=== PATIENT | female | born 1970 | race Two or more races ===

== ENCOUNTER 2017-01-31 01:55 | Emergency (ER) | payer OTHER ==
[2017-01-31 01:55] VITALS: BMI 31.8
[2017-01-31 02:19] VITALS: RESP 20; O2SAT 100
[2017-01-31] MEDS ORDERED: Sodium Chloride 0.9% 1,000 ML IV STA (02:56)
--- NOTE | 2017-01-31 02:59 | C.PDOC ---
History Of Present Illness 46 y/o F c PMHx HTN, SVT, on metoprolol, HLD, DM p/w R arm paresthesias and palpitations x 2 days. Tonight, she took her fingerstick at home and found it to be over 500 and came to ED. She reports increased urination and increased thirst. She denies chest pain, vomiting, dyspnea, abdominal pain. Time Seen by Provider: 01/31/17 02:19 Chief Complaint (Nursing): High Blood Sugar History Per: Patient History/Exam Limitations: no limitations Onset/Duration Of Symptoms: Days (2) Current Symptoms Are (Timing): Still Present Severity: Mild Associated Infectious Symptoms: Urinary Frequency, Other (Increased thirst) Recent travel outside of the [place]: No Additional History Per: Patient Past Medical History Reviewed: Historical Data, Nursing Documentation, Vital Signs Vital Signs: Last Vital Signs Temp Pulse 87 01/31/17 03:29 Resp 20 01/31/17 03:29 BP 169/92 H 01/31/17 03:29 Pulse Ox 100 01/31/17 03:29 - Medical History PMH: Anxiety, Diabetes, HTN, Hypercholesterolemia, Malignancy (Ovarian CA) Denies: Chronic Kidney Disease Surgical History: Appendectomy Family History: States: Unknown Family Hx - Social History Hx Tobacco Use: No Hx Alcohol Use: No Hx Substance Use: No - Immunization History Hx Tetanus Toxoid Vaccination: No Hx Influenza Vaccination: No Hx Pneumococcal Vaccination: No Review Of Systems Except As Marked, All Systems Reviewed And Found Negative. Constitutional: Positive for: Other (Increased thirst). Negative for: Fever, Sweats Cardiovascular: Positive for: Palpitations. Negative for: Chest Pain, Light Headedness Respiratory: Negative for: Shortness of Breath Gastrointestinal: Negative for: Vomiting, Abdominal Pain Genitourinary: Positive for: Frequency (Increased urination) Musculoskeletal: Positive for: Arm Pain (Right arm paresthesias) Physical Exam - Physical Exam Additional Physical Exam Comments: Constitutional: No acute distress. Head: Normocephalic. Atraumatic. Eyes: PERRL. ENT: Moist mucous membranes. Neck: Supple. Cardiovascular: Tachycardic. Radial pulse 2+ bilaterally. Chest: No tenderness. Respiratory: Clear to auscultation bilaterally. GI: Soft. Nontender. Nondistended. Back: No CVA tenderness. Musculoskeletal: No tenderness or swelling of extremities. Skin: No rash. Neurologic: Alert, no focal deficit. ED Course And Treatment - Laboratory Results Result Diagrams: 01/31/17 03:01 01/31/17 03:01 ECG: Interpreted By Me, Viewed By Me ECG Rhythm: Sinus Rhythm (111) ECG Interpretation: Normal Interpretation Of ECG: No ST/T wave changes. Rate From EC O2 Sat by Pulse Oximetry: 100 (RA) Pulse Ox Interpretation: Normal Medical Decision Making Medical Decision Making: Impression: R arm paresthesias and palpitations x 2 days Plans: * Blood work up * CXR * IV fluids * UA EKG Sinus rhythm, 104 bpm, no ST/T wave changes. CXR no infiltrate or consolidation. Hyperglycemia on labs without acidosis or ketosis. Blood pressure improved and glucose 313 on repeat fingerstick. Will discharge home, f/u PMD this week, return to ED for worsening dyspnea, vomiting, pain, fever, or any other problem. Disposition - Disposition Disposition: HOME/ ROUTINE Disposition Time: 04:09 Condition: STABLE Instructions: Diabetic Hyperglycemia (ED) Forms: [employer] (Hong Konger) - Clinical Impression Clinical Impression: Hyperglycemia - Scribe Statement The provider has reviewed the documentation as recorded by the Scribe Ragini chase All medical record entries made by the Scribe were at my direction and personally dictated by me. I have reviewed the chart and agree that the record accurately reflects my personal performance of the history, physical exam, medical decision making, and the department course for this patient. I have also personally directed, reviewed, and agree with the discharge instructions and disposition.
[2017-01-31] MEDS ORDERED: Sodium Chloride 0.9% 1,000 ML ONE (03:05)
[2017-01-31 03:06] LABS: BASO % 0.6 % (0.0-2.0); EOS # 0.1 K/uL (0.0-0.7); EOS % 1.5 % (0.0-4.0); HEMATOCRIT 40.9 % (34.0-47.0); LYMPH # 2.4 K/uL (1.0-4.3); LYMPH % 35.7 % (20.0-40.0); MEAN CELL VOLUME 82.5 fL (81.0-99.0); MEAN CORPUSCULAR HEMOGLOBIN 27.3 pg (27.0-31.0); MEAN CORPUSCULAR HGB CONC 33.1 g/dL (33.0-37.0); MEAN PLATELET VOLUME 10.2 fL (7.2-11.7); MONO # 0.6 K/uL (0.0-0.8); MONO % 9.1 % (0.0-10.0); NRBC % 0.1 % (0.0-2.0); RED CELL DISTRIBUTION WIDTH 13.5 % (11.5-14.5); WHITE BLOOD COUNT 6.8 K/uL (4.8-10.8)
[2017-01-31 03:12] LABS: CHLORIDE 98 mmol/L (98-107); SODIUM 138 mmol/L (132-148)
[2017-01-31 03:13] LABS: POTASSIUM 4.1 mmol/L (3.6-5.2)
[2017-01-31 03:14] LABS: GFR AFRICAN-AMERICAN > 60
[2017-01-31 03:15] LABS: ALB/GLOB RATIO 1.1 (1.0-2.1); ALKALINE PHOSPHATASE 276 U/L (38-126); ALT/SGPT 37 U/L (9-52); AST/SGOT 29 U/L (14-36); BILIRUBIN,TOTAL 0.9 mg/dL (0.2-1.3); BLOOD UREA NITROGEN 13 mg/dL (7-17); CALCIUM 9.5 mg/dl (8.6-10.4); CARBON DIOXIDE 24 mmol/L (22-30); TOTAL PROTEIN 7.6 g/dL (6.3-8.3)
[2017-01-31 03:19] LABS: RBC URINE < 1 /hpf (0-3); URINE BILIRUBIN NEGATIVE (NEGATIVE); URINE BLOOD NEGATIVE (NEGATIVE); URINE COLOR Straw (YELLOW); URINE GLUCOSE (UA) 3+ mg/dL (Normal); URINE KETONE NEGATIVE (NEGATIVE); URINE LEUKOCYTE ESTERASE NEG Leu/uL (Negative); URINE PROTEIN NEGATIVE (NEGATIVE); URINE UROBILINOGEN NORMAL mg/dL (0.2-1.0); WBC URINE < 1 /hpf (0-5)
[2017-01-31 03:27] LABS: GLUCOSE,RANDOM 409 mg/dL (65-105)
[2017-01-31 03:29] VITALS: PULSE 87
[2017-01-31 04:09] VITALS: BP 153/93
--- NOTE | 2017-01-31 11:25 | RAD ---
HISTORY: cough COMPARISON: 04/13/2016 TECHNIQUE: Chest PA and lateral FINDINGS: LUNGS: The lungs are well inflated and clear. PLEURA: No significant pleural effusion identified. No pneumothorax apparent. CARDIOVASCULAR: Normal. OSSEOUS STRUCTURES: No significant abnormalities. VISUALIZED UPPER ABDOMEN: Normal. OTHER FINDINGS: None. IMPRESSION: No active pulmonary disease.
--- NOTE | 2017-01-31 20:19 | CARD ---
APPROVED REPORT EKG Measurement Heart [id number] <Conclusion> Sinus tachycardia Poor R wave progression, possible due to lead placement Borderline ECG
== END 2017-01-31 04:46 | disposition home or self-care (01) ==
LOC: C.ER 01:55
DX: E11.65 Type 2 diabetes mellitus with hyperglycemia (principal); I10 Essential (primary) hypertension; E78.00 Pure hypercholesterolemia, unspecified
CPT/HCPCS: 71020; 80053; 81001; 82009; 82550; 82553; 82948; 84484; 85025; 87086; 93005; 96360; 99285; J7040

== ENCOUNTER 2017-07-16 16:54 | Emergency (ER) | payer OTHER ==
[2017-07-16 16:54] VITALS: BMI 31.8
[2017-07-16 19:56] VITALS: RESP 18
[2017-07-16 19:59] LABS: HCG,QUALITATIVE URINE NEGATIVE (NEGATIVE)
[2017-07-16 20:01] LABS: SQUAMOUS EPITHIAL 1 /hpf (0-5); URINE BILIRUBIN NEGATIVE (NEGATIVE); URINE BLOOD NEGATIVE (NEGATIVE); URINE CLARITY Clear (Clear); URINE COLOR Yellow (YELLOW); URINE GLUCOSE (UA) NORMAL (Normal); URINE NITRATE NEGATIVE (NEGATIVE); URINE PROTEIN NEGATIVE (NEGATIVE); URINE UROBILINOGEN NORMAL mg/dL (0.2-1.0)
[2017-07-16 20:03] LABS: URINE BACTERIA RARE (<OCC); URINE LEUKOCYTE ESTERASE NEGATIVE Leu/uL (Negative)
[2017-07-16 21:21] LABS: BASO % 0.6 % (0.0-2.0); EOS # 0.1 K/uL (0.0-0.7); EOS % 1.2 % (0.0-4.0); HEMOGLOBIN 14.4 g/dL (11.0-16.0); LYMPH # 3.2 K/uL (1.0-4.3); LYMPH % 40.3 % (20.0-40.0); MEAN CELL VOLUME 81.9 fL (81.0-99.0); MEAN CORPUSCULAR HEMOGLOBIN 27.6 pg (27.0-31.0); MEAN CORPUSCULAR HGB CONC 33.7 g/dL (33.0-37.0); MEAN PLATELET VOLUME 9.3 fL (7.2-11.7); MONO # 0.6 K/uL (0.0-0.8); MONO % 7.1 % (0.0-10.0); NEUT % 50.8 % (50.0-75.0); RBC 5.21 Mil/uL (3.80-5.20); RED CELL DISTRIBUTION WIDTH 13.9 % (11.5-14.5); WHITE BLOOD COUNT 7.9 K/uL (4.8-10.8)
[2017-07-16 21:29] LABS: INR 1.1
--- NOTE | 2017-07-16 21:33 | CT ---
EXAM: CT Head Without Intravenous Contrast CLINICAL HISTORY: 46 years old, female; Condition or disease; Headache; Migraine; Aura effect not specified TECHNIQUE: Axial computed tomography images of the head/brain without intravenous contrast. All CT scans at this facility use one or more dose reduction techniques, viz.: automated exposure control; ma/kV adjustment per patient size (including targeted exams where dose is matched to indication; i.e. head); or iterative reconstruction technique. COMPARISON: CT - HEAD W/O CONTRAST 2013-12-05 05:48 FINDINGS: Brain: No intracranial hemorrhage. No mass. No definite edema. Ventricles: No hydrocephalus. Bones/joints: No acute fracture. Soft tissues: Unremarkable. Sinuses: No acute sinusitis. Mastoid air cells: No mastoid effusion. Orbits: Unremarkable as visualized. IMPRESSION: 1. No definite acute intracranial abnormality.
[2017-07-16 21:52] LABS: ALB/GLOB RATIO 1.1 (1.0-2.1); ALBUMIN 4.3 g/dL (3.5-5.0); ALT/SGPT 46 U/L (9-52); AST/SGOT 42 U/L (14-36); BLOOD UREA NITROGEN 14 mg/dL (7-17); CALCIUM 9.7 mg/dl (8.6-10.4); GFR AFRICAN-AMERICAN > 60; GFR NON-AFRICAN AMERICAN > 60; MAGNESIUM 1.8 mg/dL (1.6-2.3)
[2017-07-16 22:54] VITALS: BP 128/74; PULSE 84; TEMP 98.2; O2SAT 98
--- NOTE | 2017-07-16 23:11 | C.PDOC ---
Time Seen by Provider: 07/16/17 19:55 Chief Complaint (Nursing): Headache History Per: Patient Onset/Duration Of Symptoms: Days (1), Gradual Current Symptoms Are (Timing): Still Present Severity: Moderate Quality: "Pain" Associated Symptoms: Nausea, Vomiting Additional History Per: Prior Records Past Medical History Reviewed: Historical Data, Nursing Documentation, Vital Signs Vital Signs: Last Vital Signs Temp 98.2 F 07/16/17 22:53 Pulse 84 07/16/17 22:53 Resp 18 07/16/17 22:53 BP 128/74 07/16/17 22:53 Pulse Ox 98 07/16/17 22:53 - Medical History PMH: Anxiety, Diabetes, HTN, Hypercholesterolemia, Malignancy (Ovarian CA) Surgical History: Appendectomy Family History: States: Unknown Family Hx - Social History Hx Tobacco Use: No Hx Alcohol Use: No Hx Substance Use: No - Immunization History Hx Tetanus Toxoid Vaccination: No Hx Influenza Vaccination: No Hx Pneumococcal Vaccination: No Review Of Systems Except As Marked, All Systems Reviewed And Found Negative. Constitutional: Negative for: Fever, Weakness Eyes: Negative for: Vision Change Cardiovascular: Negative for: Chest Pain Respiratory: Negative for: Shortness of Breath Gastrointestinal: Positive for: Nausea, Vomiting. Negative for: Abdominal Pain Musculoskeletal: Negative for: Neck Pain Skin: Negative for: Rash Neurological: Positive for: Headache. Negative for: Weakness, Numbness, Incoordination, Change in Speech, Confusion, Seizures, Altered Mental Status Physical Exam - Physical Exam Appears: Non-toxic, No Acute Distress Skin: Normal Color, Warm, Dry, No Rash Head: Atraumatic, Normacephalic Eye(s): bilateral: Normal Inspection, PERRL, EOMI Neck: Normal ROM, Supple Cardiovascular: Rhythm Regular Respiratory: Normal Breath Sounds, No Accessory Muscle Use Gastrointestinal/Abdominal: Soft, No Tenderness Extremity: Normal ROM Neurological/Psych: Oriented x3, Normal Speech, Normal Cognition, Normal Motor, Normal Sensation ED Course And Treatment - Laboratory Results Result Diagrams: 07/16/17 21:16 07/16/17 21:16 Lab Interpretation: No Acute Changes Urine POC: Negative ECG: Interpreted By Me, Viewed By Me ECG Rhythm: Sinus Rhythm, Nonspecific Changes ECG Interpretation: No Acute Changes Rate From EC O2 Sat by Pulse Oximetry: 98 Pulse Ox Interpretation: Normal - CT Scan/US CT head Other Rad Studies (CT/US): Read By Radiologist, Radiology Report Reviewed CT/US Interpretation: IMPRESSION: 1. No definite acute intracranial abnormality. Progress - Interventions Interventions:: Observation, Intravenous fluid - Medications Administered Oral: Acetaminophen Intravenous: Antiemetic, H-2 leni, NSAID - Data Reviewed Data Reviewed: Lab, Diagnostic imaging, EKG, Old records - Patient Status Patient status: Mostly improved - Continuity of Care Discussed patient case with:: Patient, ED Nurse - Patient Plan Patient Plan: Discharge, F/U with PCP, Continue present meds Medical Decision Making Medical Decision Making: Pt take Metoprolol for hypertension. She took it today. Disposition Counseled Patient/Family Regarding: Studies Performed, Diagnosis, Need For Followup, Rx Given - Disposition Disposition: HOME/ ROUTINE Disposition Time: 23:11 Condition: IMPROVED Additional Instructions: Follow up with your doctor this week. Return to the ER if you develop weakness, numbness, severe headache, worsening of symptoms or if you have any other concerns. Prescriptions: Metoclopramide [Reglan] 1 tab PO TID PRN #15 tab PRN Reason: Nausea/Vomiting Instructions: Acute Headache (ED) Forms: [employer] (Kenyan) - Clinical Impression Clinical Impression: Headache, Transient hypertension
--- NOTE | 2017-07-18 12:30 | CARD ---
APPROVED REPORT EKG Measurement Heart [id number] <Conclusion> Normal sinus rhythm Possible Left atrial enlargement Possible Anterior infarct, age undetermined Abnormal ECG
== END 2017-07-16 23:27 | disposition home or self-care (01) ==
LOC: C.ER 16:54
DX: I10 Essential (primary) hypertension (principal); R51 Headache
CPT/HCPCS: 70450; 80053; 81001; 83735; 84484; 84703; 85025; 85610; 85730; 93005; 96374; 96375; 99284; J1885; J2765

== ENCOUNTER 2017-10-31 07:48 | Observation (INO) | payer OTHER ==
[2017-10-31 07:49] VITALS: BMI 31.8
[2017-10-31] MEDS ORDERED: Sodium Chloride 0.9% 1,000 ML IV ONE (08:07)
[2017-10-31] MEDS ORDERED: Sodium Chloride 0.9% 1,000 ML ONE (08:30)
--- NOTE | 2017-10-31 08:34 | C.PDOC ---
Patient is a 46 y/o female, with a Hx of HTN and DM, who presents to the ED BIBA for complaints of elevated blood pressure and palpitations. Patient noted experiencing a little chest pain and dizziness upon waking up this morning. In ambulance, patient's blood sugar, blood pressure, and heart rate were elevated. Admits to taking all medications compliantly. No other physical complaints at this time. (MatthewRosie) History Per: Patient, EMS History/Exam Limitations: no limitations Onset/Duration Of Symptoms: Hrs (this morning) Current Symptoms Are (Timing): Still Present Associated Symptoms: Chest Pain, Dizziness Quality Of Symptoms: Rapid Heart Rate Recent travel outside of the [place]: No <Rosie Castro - Last Filed: 10/31/17 08:31> <Luma Roman - Last Filed: 10/31/17 09:36> Time Seen by Provider: 10/31/17 07:51 Chief Complaint (Nursing): Palpitations Past Medical History Reviewed: Historical Data, Nursing Documentation, Vital Signs - Medical History PMH: Anxiety, Diabetes, HTN, Hypercholesterolemia, Malignancy (Ovarian CA) Denies: Chronic Kidney Disease Surgical History: Appendectomy Family History: States: Unknown Family Hx - Social History Hx Tobacco Use: No Hx Alcohol Use: No Hx Substance Use: No - Immunization History Hx Tetanus Toxoid Vaccination: No Hx Influenza Vaccination: Yes Hx Pneumococcal Vaccination: No <Rosie Castro - Last Filed: 10/31/17 08:31> Vital Signs: Last Vital Signs Temp 98.5 F 10/31/17 08:06 Pulse 102 H 10/31/17 08:06 Resp 15 10/31/17 08:06 BP 169/85 H 10/31/17 08:36 Pulse Ox 98 10/31/17 08:39 Review Of Systems Cardiovascular: Positive for: Chest Pain, Palpitations Neurological: Positive for: Dizziness <Rosie Castro - Last Filed: 10/31/17 08:31> Physical Exam - Physical Exam Appears: Well, Non-toxic, No Acute Distress Skin: Normal Color, Warm, Dry Head: Atraumatic, Normacephalic Eye(s): bilateral: Normal Inspection Nose: Normal Oral Mucosa: Moist Chest: Symmetrical Cardiovascular: Rhythm Regular, No Murmur Respiratory: Normal Breath Sounds, No Rales, No Rhonchi, No Wheezing Gastrointestinal/Abdominal: Soft, No Tenderness Neurological/Psych: Oriented x3, Normal Speech, Normal Cognition <Rosie Castro - Last Filed: 10/31/17 08:31> ED Course And Treatment O2 Sat by Pulse Oximetry: 98 Progress Note: Blood work, CXR, and UA ordered. IV fluids administered. <Rosie Castro - Last Filed: 10/31/17 08:31> - Laboratory Results Result Diagrams: 10/31/17 08:30 10/31/17 08:30 <Luma Roman - Last Filed: 10/31/17 09:36> Disposition <Rosie Castro - Last Filed: 10/31/17 08:31> <Luma Roman - Last Filed: 10/31/17 09:36> - Disposition Forms: [employer] (Russian) - Scribe Statement The provider has reviewed the documentation as recorded by the Scribe <Rosie Castro - Last Filed: 10/31/17 08:31> <Luma Roman - Last Filed: 10/31/17 09:36> - Scribe Statement Yajaira Bartlett All medical record entries made by the Scribe were at my direction and personally dictated by me. I have reviewed the chart and agree that the record accurately reflects my personal performance of the history, physical exam, medical decision making, and the department course for this patient. I have also personally directed, reviewed, and agree with the discharge instructions and disposition. (MatthewRosie)
[2017-10-31 08:35] LABS: BASO % 0.6 % (0.0-2.0); EOS # 0.1 K/uL (0.0-0.7); EOS % 0.9 % (0.0-4.0); HEMOGLOBIN 14.4 g/dL (11.0-16.0); LYMPH # 2.2 K/uL (1.0-4.3); LYMPH % 29.8 % (20.0-40.0); MEAN CELL VOLUME 84.6 fL (81.0-99.0); MEAN CORPUSCULAR HEMOGLOBIN 28.6 pg (27.0-31.0); MEAN CORPUSCULAR HGB CONC 33.8 g/dL (33.0-37.0); MEAN PLATELET VOLUME 9.7 fL (7.2-11.7); MONO # 0.4 K/uL (0.0-0.8); MONO % 5.9 % (0.0-10.0); NEUT # 4.6 K/uL (1.8-7.0); NEUT % 62.8 % (50.0-75.0); NRBC % 0.1 % (0.0-2.0); RBC 5.04 Mil/uL (3.80-5.20); RED CELL DISTRIBUTION WIDTH 13.3 % (11.5-14.5); WHITE BLOOD COUNT 7.3 K/uL (4.8-10.8)
[2017-10-31 08:54] LABS: SQUAMOUS EPITHIAL 2 /hpf (0-5); URINE BILIRUBIN NEGATIVE (NEGATIVE); URINE BLOOD NEGATIVE (NEGATIVE); URINE CLARITY Clear (Clear); URINE COLOR Yellow (YELLOW); URINE GLUCOSE (UA) 3+ mg/dL (Normal); URINE LEUKOCYTE ESTERASE NEG Leu/uL (Negative); URINE PROTEIN 1+ mg/dL (NEGATIVE); URINE UROBILINOGEN NORMAL mg/dL (0.2-1.0)
[2017-10-31 09:09] LABS: ALB/GLOB RATIO 1.1 (1.0-2.1); AST/SGOT 42 U/L (14-36); BLOOD UREA NITROGEN 14 mg/dL (7-17); CALCIUM 9.2 mg/dl (8.6-10.4); GFR AFRICAN-AMERICAN > 60; GFR NON-AFRICAN AMERICAN > 60
[2017-10-31 09:11] LABS: CK-MB < 0.22 ng/mL (0.0-3.38)
--- NOTE | 2017-10-31 09:13 | RAD ---
HISTORY: SOB COMPARISON: 01/31/2017 TECHNIQUE: Chest PA and lateral FINDINGS: LUNGS: No active pulmonary disease. PLEURA: No significant pleural effusion identified. No pneumothorax apparent. CARDIOVASCULAR: Normal. OSSEOUS STRUCTURES: No significant abnormalities. VISUALIZED UPPER ABDOMEN: Normal. OTHER FINDINGS: None. IMPRESSION: No active disease.
[2017-10-31 09:20] LABS: ALT/SGPT 32 U/L (9-52); LIPASE 106 U/L (23-300)
--- NOTE | 2017-10-31 09:44 | C.PDOC ---
History Of Present Illness Patient is a 46 y/o female, with a Hx of HTN and DM, who presents to the ED BIBA for complaints of elevated blood pressure and palpitations. Patient noted experiencing a little chest pain and dizziness upon waking up this morning. In ambulance, patient's blood sugar, blood pressure, and heart rate were elevated. Admits to taking all medications compliantly. No other physical complaints at this time. Time Seen by Provider: 10/31/17 07:51 Chief Complaint (Nursing): Palpitations History Per: Patient History/Exam Limitations: no limitations Onset/Duration Of Symptoms: Hrs (this morning) Current Symptoms Are (Timing): Still Present Associated Symptoms: Chest Pain, Dizziness Quality Of Symptoms: Rapid Heart Rate Recent travel outside of the [place]: No Past Medical History Reviewed: Historical Data, Nursing Documentation, Vital Signs Vital Signs: Last Vital Signs Temp 98.5 F 10/31/17 08:06 Pulse 89 10/31/17 10:16 Resp 16 10/31/17 10:16 BP 173/91 H 10/31/17 10:16 Pulse Ox 98 10/31/17 10:23 - Medical History PMH: Anxiety, Diabetes, HTN, Hypercholesterolemia, Malignancy (Ovarian CA) Denies: Chronic Kidney Disease Surgical History: Appendectomy Family History: States: No Known Family Hx - Social History Hx Tobacco Use: No Hx Alcohol Use: No Hx Substance Use: No - Immunization History Hx Tetanus Toxoid Vaccination: No Hx Influenza Vaccination: Yes Hx Pneumococcal Vaccination: No Review Of Systems Cardiovascular: Positive for: Chest Pain, Palpitations Neurological: Positive for: Dizziness Physical Exam - Physical Exam Appears: Well, Non-toxic Skin: Normal Color, Warm, Dry Head: Atraumatic, Normacephalic Oral Mucosa: Moist Chest: Symmetrical Cardiovascular: Rhythm Regular, No Murmur Respiratory: Normal Breath Sounds, No Rales, No Rhonchi, No Wheezing Extremity: Normal ROM (x4) Neurological/Psych: Oriented x3, Normal Speech, Normal Cognition, Normal Motor, Normal Sensation, Other (no focal deficits) ED Course And Treatment - Laboratory Results Result Diagrams: 10/31/17 08:30 10/31/17 08:30 Lab Interpretation: No Acute Changes ECG: Interpreted By Me ECG Rhythm: Sinus Tachycardia ECG Interpretation: Normal Rate From EC O2 Sat by Pulse Oximetry: 98 Pulse Ox Interpretation: Normal - Radiology CXR: Interpreted by Me, Viewed By Me CXR Interpretation: Yes: No Acute Disease Progress Note: IV fluids administered. CXR ordered. Patient took ASA 81 mg x 4 [employer]. On re-evaluation feeling better, lungs clear Reassessment Condition: Improved - Physician Consult Information Physician Contacted: Pop Byrnes Outcome Of Conversation: tele OBS Disposition Discussed With : Pop Byrnes Doctor Will See Patient In The: Hospital - Disposition Disposition: HOSPITALIZED Disposition Time: 10:30 Condition: IMPROVED Instructions: Chest Pain Forms: [employer] (Kyrgyz) - POA Present On Arrival: None - Clinical Impression Clinical Impression: Chest pain - Scribe Statement The provider has reviewed the documentation as recorded by the Scribe Yajaira Bartlett All medical record entries made by the Scribe were at my direction and personally dictated by me. I have reviewed the chart and agree that the record accurately reflects my personal performance of the history, physical exam, medical decision making, and the department course for this patient. I have also personally directed, reviewed, and agree with the discharge instructions and disposition. Decision To Admit - Pt Status Changed To: Hospital Disposition Of: Observation - . Bed Request Type: Telemetry Admitting Physician: Pop Byrnes Patient Diagnosis: Chest pain
[2017-10-31] MEDS ORDERED: Labetalol 25mg/5ml Syringe IV STA (11:54)
[2017-10-31 21:02] LABS: CK-MB 0.36 ng/mL (0.0-3.38)
[2017-10-31] MEDS: (Novolog) Insulin Aspart, Recombinant 100 u/ml 10 ml vial SC SCH (21:04)
--- NOTE | 2017-10-31 23:52 | CP.PCM.HP ---
History of Present Illness - History of Present Illness History of Present Illness: CC: Chest pain History Of Present Illness Patient is a 46 y/o AA female, with a Hx of HTN and DM,Hyperlipidemia, extensive PMH of on and off palpitations, seen by casing cooker and been worked up ,also have h/o ovarian Carcinoma in past who presents to the ED BIBA for complaints of elevated blood pressure and palpitations. Patient noted experiencing a little chest pain and dizziness upon waking up this morning. In ambulance, patient's blood sugar, blood pressure, and heart rate were elevated. Admits to taking all medications compliantly. No other physical complaints at this time, chest pain is di=ull in character not associated with cough, diaphoresis, nausea, vomitting.. Present on Admission - Present on Admission Any Indicators Present on Admission: Yes Review of Systems - Review of Systems Systems not reviewed;Unavailable: Acuity of Condition - Constitutional Constitutional: Fatigue, Malaise, Weakness - EENT Eyes: absent: As Per HPI, Blind Spots, Blurred Vision, Change in Vision, Decreased Night Vision, Diplopia, Discharge, Dry Eye, Exophthalmos, Floaters, Irritation, Itchy Eyes, Loss of Peripheral Vision, Pain, Photophobia, Requires Corrective Lenses, Sees Flashes, Spots in Vision, Tunnel Vision, Other Visual Disturbances, Loss of Vision, Other Nose/Mouth/Throat: absent: As Per HPI, Epistaxis, Nasal Congestion, Nasal Discharge, Nasal Obstruction, Nasal Trauma, Nose Pain, Post Nasal Drip, Sinus Pain, Sinus Pressure, Bleeding Gums, Change in Voice, Dental Pain, Dry Mouth, Dysphagia, Halitosis, Hoarsness, Lip Swelling, Mouth Lesions, Mouth Pain, Odynophagia, Sore Throat, Throat Swelling, Tongue Swelling, Facial Pain, Neck Pain, Neck Mass, Other - Cardiovascular Cardiovascular: Chest Pain, Dyspnea - Respiratory Respiratory: Dyspnea, Chest Congestion - Gastrointestinal Gastrointestinal: absent: As Per HPI, Abdominal Pain, Belching, Bloating, Change in Bowel Habits, Change in Stool Character, Coffee Ground Emesis, Constipation, Cramping, Diarrhea, Dyspepsia, Dysphagia, Early Satiety, Excessive Flatus, Fecal Incontinence, Heartburn, Hematemesis, Hematochezia, Loose Stools, Melena, Nausea, Odynophagia, Temesmus, Vomiting, Other - Genitourinary Genitourinary: absent: As Per HPI, Change in Urinary Stream, Difficulty Urinating, Dysuria, Flank Pain, Hematuria, Pyuria, Nocturia, Urinary Incontinence, Urinary Frequency, Urinary Hesitance, Urinary Urgency, Voiding Freq/Small Amts, Freq UTI, Hx Renal/Bladder Calculi, Hx /Renal Surgery, Bladder Distension, Other - Musculoskeletal Musculoskeletal: Back Pain, Myalgias - Integumentary Integumentary: absent: As Per HPI, Acne, Alopecia, Bleeding Lesions, Change in Hair, Change in Nails, Change in Pigmentation, Changing Lesions, Dry Skin, Erythema, Furuncle, Hirsutism, Lesions, New Lesions, Non-Healing Lesions, Photosensitivity, Pruritus, Rash, Skin Pain, Skin Ulcer, Sores, Striae, Swelling , Unusual Bruising, Wounds, Jaundice, Other - Neurological Neurological: Dizziness, Headaches. absent: As Per HPI, Abnormal Gait, Abnormal Hearing, Abnormal Movements, Abnormal Speech, Behavioral Changes, Burning Sensations, Confusion, Convulsions, Disequilibrium, Numbness, Focal Weakness, Frequent Falls, Lack of Coordination, Loss of Vision, Memory Loss, Paresthesias, Radicular Pain, Restless Legs, Sensory Deficit, Syncope, Tingling , Tremor, Vertigo, Weakness, Other Visual Disturbances, Other Past Patient History - Infectious Disease Hx of Infectious Diseases: None - Tetanus Immunizations Tetanus Immunization: Unknown - Past Medical History & Family History Past Medical History?: Yes - Past Social History Smoking Status: Never Smoked - CARDIAC Hx Hypercholesterolemia: Yes Hx Hypertension: Yes - PULMONARY Hx Respiratory Disorders: No - NEUROLOGICAL Hx Neurological Disorder: No - HEENT Hx HEENT Problems: No - RENAL Hx Chronic Kidney Disease: No - ENDOCRINE/METABOLIC Hx Diabetes Mellitus Type 2: Yes - HEMATOLOGICAL/ONCOLOGICAL Hx Blood Disorders: No Hx Cancer: Yes (Ovarian cancer) Hx Chemotherapy: Yes - INTEGUMENTARY Hx Dermatological Problems: No - MUSCULOSKELETAL/RHEUMATOLOGICAL Hx Musculoskeletal Disorders: No Hx Falls: No - GASTROINTESTINAL Hx Gastrointestinal Disorders: No - GENITOURINARY/GYNECOLOGICAL Hx Genitourinary Disorders: No Hx Ovarian Cancer: Yes - PSYCHIATRIC Hx Anxiety: Yes Hx Substance Use: No - SURGICAL HISTORY Hx Appendectomy: Yes - ANESTHESIA Hx Anesthesia: Yes Hx Anesthesia Reactions: No Meds Allergies/Adverse Reactions: Allergies Allergy/AdvReac Type Severity Reaction Status Date / Time No Known Allergies Allergy Verified 10/31/17 08:12 Physical Exam - Constitutional Appears: No Acute Distress - Eye Exam Eye Exam: EOMI, Normal appearance, PERRL Pupil Exam: NORMAL ACCOMODATION, PERRL - ENT Exam ENT Exam: Mucous Membranes Moist, Normal Exam - Respiratory Exam Respiratory Exam: Clear to Auscultation Bilateral, NORMAL BREATHING PATTERN - Cardiovascular Exam Cardiovascular Exam: REGULAR RHYTHM - GI/Abdominal Exam GI & Abdominal Exam: Normal Bowel Sounds, Soft. absent: Tenderness Results - Vital Signs Recent Vital Signs: Last Vital Signs Temp 98.4 F 10/31/17 21:06 Pulse 88 10/31/17 21:06 Resp 18 10/31/17 21:06 BP 158/95 H 10/31/17 21:06 Pulse Ox 97 10/31/17 20:00 - Labs Result Diagrams: 10/31/17 08:30 10/31/17 08:30 Labs: Laboratory Results - last 24 hr 10/31/17 10/31/17 10/31/17 08:09 08:30 08:30 WBC 7.3 RBC 5.04 Hgb 14.4 Hct 42.6 MCV 84.6 D MCH 28.6 MCHC 33.8 RDW 13.3 Plt Count 242 MPV 9.7 Neut % (Auto) 62.8 Lymph % (Auto) 29.8 Nolan % (Auto) 5.9 Eos % (Auto) 0.9 Baso % (Auto) 0.6 Neut # (Auto) 4.6 Lymph # (Auto) 2.2 Nolan # (Auto) 0.4 Eos # (Auto) 0.1 Baso # (Auto) 0.0 Sodium 140 Potassium 4.0 Chloride 101 Carbon Dioxide 26 Anion Gap 18 BUN 14 Creatinine 0.6 L Est GFR ( Amer) > 60 Est GFR (Non-Af Amer) > 60 POC Glucose (mg/dL) 285 H Random Glucose 324 H Calcium 9.2 Total Bilirubin 1.0 AST 42 H ALT 32 Alkaline Phosphatase 173 H D Total Creatine Kinase CK-MB (Mass) < 0.22 Troponin I < 0.0120 Total Protein 7.6 Albumin 4.0 Globulin 3.6 Albumin/Globulin Ratio 1.1 Lipase 106 Urine Color Urine Clarity Urine pH Ur Specific [place] Urine Protein Urine Glucose (UA) Urine Ketones Urine Blood Urine Nitrate Urine Bilirubin Urine Urobilinogen Ur Leukocyte Esterase Urine WBC (Auto) Ur Squamous Epith Cells 10/31/17 10/31/17 10/31/17 08:41 16:49 20:29 WBC RBC Hgb Hct MCV MCH MCHC RDW Plt Count MPV Neut % (Auto) Lymph % (Auto) Nolan % (Auto) Eos % (Auto) Baso % (Auto) Neut # (Auto) Lymph # (Auto) Nolan # (Auto) Eos # (Auto) Baso # (Auto) Sodium Potassium Chloride Carbon Dioxide Anion Gap BUN Creatinine Est GFR ( Amer) Est GFR (Non-Af Amer) POC Glucose (mg/dL) 189 H Random Glucose Calcium Total Bilirubin AST ALT Alkaline Phosphatase Total Creatine Kinase 90 CK-MB (Mass) 0.36 Troponin I < 0.0120 Total Protein Albumin Globulin Albumin/Globulin Ratio Lipase Urine Color Yellow Urine Clarity Clear Urine pH 5.0 Ur Specific [place] 1.014 Urine Protein 1+ H Urine Glucose (UA) 3+ H Urine Ketones Negative Urine Blood Negative Urine Nitrate Negative Urine Bilirubin Negative Urine Urobilinogen Normal Ur Leukocyte Esterase Neg Urine WBC (Auto) < 1 Ur Squamous Epith Cells 2 10/31/17 20:47 WBC RBC Hgb Hct MCV MCH MCHC RDW Plt Count MPV Neut % (Auto) Lymph % (Auto) Nolan % (Auto) Eos % (Auto) Baso % (Auto) Neut # (Auto) Lymph # (Auto) Nolan # (Auto) Eos # (Auto) Baso # (Auto) Sodium Potassium Chloride Carbon Dioxide Anion Gap BUN Creatinine Est GFR ( Amer) Est GFR (Non-Af Amer) POC Glucose (mg/dL) 188 H Random Glucose Calcium Total Bilirubin AST ALT Alkaline Phosphatase Total Creatine Kinase CK-MB (Mass) Troponin I Total Protein Albumin Globulin Albumin/Globulin Ratio Lipase Urine Color Urine Clarity Urine pH Ur Specific [place] Urine Protein Urine Glucose (UA) Urine Ketones Urine Blood Urine Nitrate Urine Bilirubin Urine Urobilinogen Ur Leukocyte Esterase Urine WBC (Auto) Ur Squamous Epith Cells Assessment & Plan (1) Hypertension Assessment and Plan: losrtan cardiac eval ekg cardiac enzymes Status: Acute (2) Chest pain Status: Acute (3) Abdominal pain Status: Acute (4) Dizziness Status: Acute (5) Headache Status: Acute (6) Diabetes Assessment and Plan: ACCUCHECK sliding scale insulin Status: Acute
[2017-11-01 01:24] LABS: CK-MB 0.57 ng/mL (0.0-3.38)
[2017-11-01 08:20] LABS: BLOOD UREA NITROGEN 11 mg/dL (7-17); GFR AFRICAN-AMERICAN > 60; GFR NON-AFRICAN AMERICAN > 60
[2017-11-01] MEDS: (Novolog) Insulin Aspart, Recombinant 100 u/ml 10 ml vial SC SCH ×4 (08:30→21:36)
--- NOTE | 2017-11-01 09:11 | CP.PCM.CON ---
Past Patient History - Infectious Disease Hx of Infectious Diseases: None - Tetanus Immunizations Tetanus Immunization: Unknown - Past Medical History & Family History Past Medical History?: Yes - Past Social History Smoking Status: Never Smoked - CARDIAC Hx Hypercholesterolemia: Yes Hx Hypertension: Yes - PULMONARY Hx Respiratory Disorders: No - NEUROLOGICAL Hx Neurological Disorder: No - HEENT Hx HEENT Problems: No - RENAL Hx Chronic Kidney Disease: No - ENDOCRINE/METABOLIC Hx Diabetes Mellitus Type 2: Yes - HEMATOLOGICAL/ONCOLOGICAL Hx Blood Disorders: No Hx Cancer: Yes (Ovarian cancer) Hx Chemotherapy: Yes - INTEGUMENTARY Hx Dermatological Problems: No - MUSCULOSKELETAL/RHEUMATOLOGICAL Hx Musculoskeletal Disorders: No Hx Falls: No - GASTROINTESTINAL Hx Gastrointestinal Disorders: No - GENITOURINARY/GYNECOLOGICAL Hx Genitourinary Disorders: No Hx Ovarian Cancer: Yes - PSYCHIATRIC Hx Anxiety: Yes Hx Substance Use: No - SURGICAL HISTORY Hx Appendectomy: Yes - ANESTHESIA Hx Anesthesia: Yes Hx Anesthesia Reactions: No Meds Allergies/Adverse Reactions: Allergies Allergy/AdvReac Type Severity Reaction Status Date / Time No Known Allergies Allergy Verified 10/31/17 08:12 - Medications Medications: Current Medications Aspirin (Ecotrin) 81 mg PO DAILY [facility] Enoxaparin Sodium (Lovenox) 40 mg SC DAILY [facility] Insulin Aspart (Novolog) 0 unit SC [facility] PRN Reason: Protocol Last Admin: 10/31/17 21:04 Dose: Not Given Losartan Potassium (Cozaar) 50 mg PO DAILY [facility] Metoprolol Succinate (Toprol Xl) 100 mg PO DAILY [facility] Rosuvastatin Calcium (Crestor) 20 mg PO [facility] Last Admin: 10/31/17 21:05 Dose: 20 mg Sitagliptin Phosphate (Januvia) 100 mg PO DAILY [facility] Results - Vital Signs Recent Vital Signs: Last Vital Signs Temp 98.1 F 11/01/17 07:35 Pulse 88 11/01/17 07:35 Resp 20 11/01/17 07:35 BP 145/86 11/01/17 07:35 Pulse Ox 98 11/01/17 08:34 - Labs Result Diagrams: 10/31/17 08:30 11/01/17 07:40 Labs: Laboratory Results - last 24 hr 10/31/17 10/31/17 10/31/17 08:30 16:49 20:29 Sodium 140 Potassium 4.0 Chloride Carbon Dioxide Anion Gap 18 BUN Creatinine Est GFR ( Amer) Est GFR (Non-Af Amer) POC Glucose (mg/dL) 189 H Random Glucose Calcium ALT 32 Total Creatine Kinase 90 CK-MB (Mass) < 0.22 0.36 Troponin I < 0.0120 Lipase 106 10/31/17 11/01/17 11/01/17 20:47 00:56 06:25 Sodium Potassium Chloride Carbon Dioxide Anion Gap BUN Creatinine Est GFR ( Amer) Est GFR (Non-Af Amer) POC Glucose (mg/dL) 188 H 220 H Random Glucose Calcium ALT Total Creatine Kinase 62 CK-MB (Mass) 0.57 Troponin I < 0.0120 Lipase 11/01/17 07:40 Sodium 139 Potassium 4.0 Chloride 103 Carbon Dioxide 24 Anion Gap 17 BUN 11 Creatinine 0.6 L Est GFR ( Amer) > 60 Est GFR (Non-Af Amer) > 60 POC Glucose (mg/dL) Random Glucose 233 H Calcium 9.0 ALT Total Creatine Kinase CK-MB (Mass) Troponin I Lipase
--- NOTE | 2017-11-01 09:54 | CP.PCM.PCO ---
Addendum Addendum: Tyson Canas PGY1 Patient states she has private manager supplier Dr. Woodson. Dr. Byrnes is contacted and message was left with answering service, with my call back number. Dr. Woodson contacted and he accepts the consult since he knows the patient well. Will cancel Dr. Eason consult.
[2017-11-01] MEDS: Metoprolol Succinate 100 mg XL Tab PO SCH (10:00)
[2017-11-01] MEDS: Enoxaparin 40 mg Syringe SC SCH (10:00)
--- NOTE | 2017-11-01 23:11 | CP.PCM.PN ---
Subjective - Date & Time of Evaluation Date of Evaluation: 11/01/17 Time of Evaluation: 19:00 - Subjective Subjective: Pt seen and examined at bedside, c/o palpitations but no chest pain Objective - Vital Signs/Intake and Output Vital Signs (last 24 hours): Temp Pulse Resp BP Pulse Ox 97.9 F 90 20 123/79 98 11/01/17 15:30 11/01/17 18:28 11/01/17 15:30 11/01/17 15:30 11/01/17 22:38 Intake and Output: 11/01/17 11/02/17 18:59 06:59 Intake Total 450 Balance 450 - Medications Medications: Current Medications Aspirin (Ecotrin) 81 mg PO DAILY [facility] Last Admin: 11/01/17 10:00 Dose: 81 mg Enoxaparin Sodium (Lovenox) 40 mg SC DAILY [facility] Last Admin: 11/01/17 10:00 Dose: 40 mg Insulin Aspart (Novolog) 0 unit SC [facility] PRN Reason: Protocol Last Admin: 11/01/17 21:36 Dose: Not Given Losartan Potassium (Cozaar) 50 mg PO DAILY [facility] Last Admin: 11/01/17 10:00 Dose: 50 mg Metoprolol Succinate (Toprol Xl) 100 mg PO DAILY [facility] Last Admin: 11/01/17 10:00 Dose: 100 mg Rosuvastatin Calcium (Crestor) 20 mg PO HS [facility] Last Admin: 11/01/17 21:35 Dose: 20 mg Sitagliptin Phosphate (Januvia) 100 mg PO DAILY [facility] Last Admin: 11/01/17 10:00 Dose: 100 mg - Labs Labs: 10/31/17 08:30 11/01/17 07:40 - Constitutional Appears: Well - Eye Exam Eye Exam: EOMI, Normal appearance, PERRL Pupil Exam: NORMAL ACCOMODATION, PERRL - ENT Exam ENT Exam: Mucous Membranes Moist, Normal Exam - Respiratory Exam Respiratory Exam: Clear to Ausculation Bilateral, NORMAL BREATHING PATTERN - Cardiovascular Exam Cardiovascular Exam: REGULAR RHYTHM, +S1, +S2. absent: Murmur - Neurological Exam Neurological Exam: Alert, Awake, CN II-XII Intact, Normal Gait, Oriented x3 - Psychiatric Exam Psychiatric exam: Anxious Assessment and Plan (1) Hypertension Status: Acute (2) Chest pain Status: Acute (3) Abdominal pain Status: Acute (4) Dizziness Status: Acute (5) Headache Status: Acute (6) Diabetes Status: Acute (7) Hyperlipidemia Status: Acute
--- NOTE | 2017-11-01 23:49 | CP.PCM.CON ---
History of Present Illness - History of Present Illness History of Present Illness: 46 yo female complaining of episodes of left sided chest pain on and off at rest and palpitation for the past few days. She is known to have a NIDDM, a HPTN , a hypercholesterolemia, a Hx of avarian cancer, a documented paroxysmal SVT in the past, she had a normal stress test 3 years ago. In the ED, her ECGrevealed an RSR, with no acute ST-T wave change. Serum TNI's x 3 are normal. HgbA1C: 11.9. Review of Systems - Cardiovascular Cardiovascular: Chest Pain, Palpitations Past Patient History - Infectious Disease Hx of Infectious Diseases: None - Tetanus Immunizations Tetanus Immunization: Unknown - Past Medical History & Family History Past Medical History?: Yes - Past Social History Smoking Status: Never Smoked Alcohol: None Drugs: Denies Home Situation {Lives}: With Family Domestic Violence: Negative - CARDIAC Hx Cardia Arrhythmia: Yes (Paroxysmal SVT.) Hx Hypercholesterolemia: Yes Hx Hypertension: Yes - PULMONARY Hx Respiratory Disorders: No - NEUROLOGICAL Hx Neurological Disorder: No - HEENT Hx HEENT Problems: No - RENAL Hx Chronic Kidney Disease: No - ENDOCRINE/METABOLIC Hx Diabetes Mellitus Type 2: Yes - HEMATOLOGICAL/ONCOLOGICAL Hx Blood Disorders: No Hx Cancer: Yes (Ovarian cancer) Hx Chemotherapy: Yes - INTEGUMENTARY Hx Dermatological Problems: No - MUSCULOSKELETAL/RHEUMATOLOGICAL Hx Musculoskeletal Disorders: No Hx Falls: No - GASTROINTESTINAL Hx Gastrointestinal Disorders: No - GENITOURINARY/GYNECOLOGICAL Hx Genitourinary Disorders: No Hx Ovarian Cancer: Yes - PSYCHIATRIC Hx Anxiety: Yes Hx Substance Use: No - SURGICAL HISTORY Hx Appendectomy: Yes - ANESTHESIA Hx Anesthesia: Yes Hx Anesthesia Reactions: No Has any member of the family had a problem w/ anesthesia?: No Meds Allergies/Adverse Reactions: Allergies Allergy/AdvReac Type Severity Reaction Status Date / Time No Known Allergies Allergy Verified 10/31/17 08:12 - Medications Medications: Current Medications Aspirin (Ecotrin) 81 mg PO DAILY [facility] Last Admin: 11/01/17 10:00 Dose: 81 mg Enoxaparin Sodium (Lovenox) 40 mg SC DAILY [facility] Last Admin: 11/01/17 10:00 Dose: 40 mg Insulin Aspart (Novolog) 0 unit SC [facility] PRN Reason: Protocol Last Admin: 11/01/17 21:36 Dose: Not Given Losartan Potassium (Cozaar) 50 mg PO DAILY [facility] Last Admin: 11/01/17 10:00 Dose: 50 mg Metoprolol Succinate (Toprol Xl) 100 mg PO DAILY [facility] Last Admin: 11/01/17 10:00 Dose: 100 mg Rosuvastatin Calcium (Crestor) 20 mg PO HS [facility] Last Admin: 11/01/17 21:35 Dose: 20 mg Sitagliptin Phosphate (Januvia) 100 mg PO DAILY [facility] Last Admin: 11/01/17 10:00 Dose: 100 mg Physical Exam - Constitutional Appears: No Acute Distress - Head Exam Head Exam: NORMAL INSPECTION - Eye Exam Eye Exam: Normal appearance Pupil Exam: NORMAL ACCOMODATION - ENT Exam ENT Exam: Normal Exam - Neck Exam Neck exam: Positive for: Normal Inspection - Respiratory Exam Respiratory Exam: Clear to Auscultation Bilateral, NORMAL BREATHING PATTERN - Cardiovascular Exam Cardiovascular Exam: REGULAR RHYTHM - GI/Abdominal Exam GI & Abdominal Exam: Normal Bowel Sounds, Soft - Rectal Exam Rectal Exam: Deferred - Exam Exam: NORMAL INSPECTION - Extremities Exam Extremities exam: Positive for: normal inspection - Back Exam Back exam: NORMAL INSPECTION - Neurological Exam Neurological exam: Alert, Oriented x3 - Psychiatric Exam Psychiatric exam: Anxious - Skin Skin Exam: Dry, Normal Color, Warm Results - Vital Signs Recent Vital Signs: Last Vital Signs Temp 97.9 F 11/01/17 15:30 Pulse 90 11/01/17 18:28 Resp 20 11/01/17 15:30 BP 123/79 11/01/17 15:30 Pulse Ox 98 11/01/17 22:38 - Labs Result Diagrams: 10/31/17 08:30 11/01/17 07:40 Labs: Laboratory Results - last 24 hr 11/01/17 11/01/17 11/01/17 00:56 06:25 07:40 Sodium 139 Potassium 4.0 Chloride 103 Carbon Dioxide 24 Anion Gap 17 BUN 11 Creatinine 0.6 L Est GFR ( Amer) > 60 Est GFR (Non-Af Amer) > 60 POC Glucose (mg/dL) 220 H Random Glucose 233 H Hemoglobin A1c Calcium 9.0 Total Creatine Kinase 62 CK-MB (Mass) 0.57 Troponin I < 0.0120 Triglycerides Cholesterol LDL Cholesterol Direct HDL Cholesterol TSH 3rd Generation 11/01/17 11/01/17 11/01/17 11:15 11:26 11:26 Sodium Potassium Chloride Carbon Dioxide Anion Gap BUN Creatinine Est GFR ( Amer) Est GFR (Non-Af Amer) POC Glucose (mg/dL) 282 H Random Glucose Hemoglobin A1c 11.9 H Calcium Total Creatine Kinase CK-MB (Mass) Troponin I Triglycerides 214 H Cholesterol 255 H LDL Cholesterol Direct 173 H HDL Cholesterol 44 TSH 3rd Generation 1.13 11/01/17 11/01/17 18:31 21:04 Sodium Potassium Chloride Carbon Dioxide Anion Gap BUN Creatinine Est GFR ( Amer) Est GFR (Non-Af Amer) POC Glucose (mg/dL) 315 H 335 H Random Glucose Hemoglobin A1c Calcium Total Creatine Kinase CK-MB (Mass) Troponin I Triglycerides Cholesterol LDL Cholesterol Direct HDL Cholesterol TSH 3rd Generation Assessment & Plan (1) Chest pain Assessment and Plan: Atypical. But CAD has to to be considered in a diabetic patient Status: Acute (2) Uncontrolled diabetes mellitus Status: Acute (3) Uncontrolled diabetes mellitus Status: Acute (4) Hypertension Status: Acute
--- NOTE | 2017-11-01 23:56 | CARD ---
APPROVED REPORT EKG Measurement Heart [id number] <Conclusion> Sinus tachycardia Possible Left atrial enlargement Borderline ECG
[2017-11-02 02:12] VITALS: O2SAT 99
[2017-11-02 08:08] VITALS: RESP 20
[2017-11-02] MEDS: Enoxaparin 40 mg Syringe SC SCH (09:12)
[2017-11-02] MEDS: Metoprolol Succinate 100 mg XL Tab PO SCH (09:12)
[2017-11-02] MEDS: (Novolog) Insulin Aspart, Recombinant 100 u/ml 10 ml vial SC SCH ×3 (09:12→18:15)
[2017-11-02 16:25] VITALS: BP 121/79; TEMP 97.4
[2017-11-02 19:09] VITALS: PULSE 79
--- NOTE | 2017-11-03 05:03 | CP.PCM.DIS ---
Provider - Provider Date of Admission: 10/31/17 10:41 Attending physician: Pop Byrens MD Time Spent in preparation of Discharge (in minutes): 18 Diagnosis - Discharge Diagnosis (1) Hypertension Status: Acute (2) Chest pain Status: Acute (3) Abdominal pain Status: Acute (4) Dizziness Status: Acute (5) Headache Status: Acute (6) Diabetes Status: Acute Hospital Course - Lab Results Lab Results: Most Recent Lab Values WBC 7.3 K/uL (4.8-10.8) 10/31/17 08:30 RBC 5.04 Mil/uL (3.80-5.20) 10/31/17 08:30 Hgb 14.4 g/dL (11.0-16.0) 10/31/17 08:30 Hct 42.6 % (34.0-47.0) 10/31/17 08:30 MCV 84.6 fL (81.0-99.0) D 10/31/17 08:30 MCH 28.6 pg (27.0-31.0) 10/31/17 08:30 MCHC 33.8 g/dL (33.0-37.0) 10/31/17 08:30 RDW 13.3 % (11.5-14.5) 10/31/17 08:30 Plt Count 242 K/uL (130-400) 10/31/17 08:30 MPV 9.7 fL (7.2-11.7) 10/31/17 08:30 Neut % (Auto) 62.8 % (50.0-75.0) 10/31/17 08:30 Lymph % (Auto) 29.8 % (20.0-40.0) 10/31/17 08:30 [place] % (Auto) 5.9 % (0.0-10.0) 10/31/17 08:30 Eos % (Auto) 0.9 % (0.0-4.0) 10/31/17 08:30 Baso % (Auto) 0.6 % (0.0-2.0) 10/31/17 08:30 Neut # (Auto) 4.6 K/uL (1.8-7.0) 10/31/17 08:30 Lymph # (Auto) 2.2 K/uL (1.0-4.3) 10/31/17 08:30 [place] # (Auto) 0.4 K/uL (0.0-0.8) 10/31/17 08:30 Eos # (Auto) 0.1 K/uL (0.0-0.7) 10/31/17 08:30 Baso # (Auto) 0.0 K/uL (0.0-0.2) 10/31/17 08:30 Sodium 139 mmol/L (132-148) 11/01/17 07:40 Potassium 4.0 mmol/L (3.6-5.2) 11/01/17 07:40 Chloride 103 mmol/L (98-107) 11/01/17 07:40 Carbon Dioxide 24 mmol/L (22-30) 11/01/17 07:40 Anion Gap 17 (10-20) 11/01/17 07:40 BUN 11 mg/dL (7-17) 11/01/17 07:40 Creatinine 0.6 mg/dL (0.7-1.2) L 11/01/17 07:40 Est GFR ( Amer) > 60 11/01/17 07:40 Est GFR (Non-Af Amer) > 60 11/01/17 07:40 POC Glucose (mg/dL) 244 mg/dL (65-110) H 11/02/17 16:55 Random Glucose 233 mg/dL (65-105) H 11/01/17 07:40 Hemoglobin A1c 11.9 % (4.2-6.5) H 11/01/17 11:26 Calcium 9.0 mg/dl (8.6-10.4) 11/01/17 07:40 Total Bilirubin 1.0 mg/dL (0.2-1.3) 10/31/17 08:30 AST 42 U/L (14-36) H 10/31/17 08:30 ALT 32 U/L (9-52) 10/31/17 08:30 Alkaline Phosphatase 173 U/L (38-126) H D 10/31/17 08:30 Total Creatine Kinase 62 U/L (30-135) 11/01/17 00:56 CK-MB (Mass) 0.57 ng/mL (0.0-3.38) 11/01/17 00:56 Troponin I < 0.0120 ng/mL (0.00-0.120) 11/01/17 00:56 Total Protein 7.6 g/dL (6.3-8.3) 10/31/17 08:30 Albumin 4.0 g/dL (3.5-5.0) 10/31/17 08:30 Globulin 3.6 gm/dL (2.2-3.9) 10/31/17 08:30 Albumin/Globulin Ratio 1.1 (1.0-2.1) 10/31/17 08:30 Triglycerides 214 mg/dL (0-149) H 11/01/17 11:26 Cholesterol 255 mg/dL (0-199) H 11/01/17 11:26 LDL Cholesterol Direct 173 mg/dL (0-129) H 11/01/17 11:26 HDL Cholesterol 44 mg/dL (30-70) 11/01/17 11:26 Lipase 106 U/L (23-300) 10/31/17 08:30 TSH 3rd Generation 1.13 mIU/L (0.46-4.68) 11/01/17 11:26 Urine Color Yellow (YELLOW) 10/31/17 08:41 Urine Clarity Clear (Clear) 10/31/17 08:41 Urine pH 5.0 (5.0-8.0) 10/31/17 08:41 Ur Specific [place] 1.014 (1.003-1.030) 10/31/17 08:41 Urine Protein 1+ mg/dL (NEGATIVE) H 10/31/17 08:41 Urine Glucose (UA) 3+ mg/dL (Normal) H 10/31/17 08:41 Urine Ketones Negative mg/dL (NEGATIVE) 10/31/17 08:41 Urine Blood Negative (NEGATIVE) 10/31/17 08:41 Urine Nitrate Negative (NEGATIVE) 10/31/17 08:41 Urine Bilirubin Negative (NEGATIVE) 10/31/17 08:41 Urine Urobilinogen Normal mg/dL (0.2-1.0) 10/31/17 08:41 Ur Leukocyte Esterase Neg Mike/uL (Negative) 10/31/17 08:41 Urine WBC (Auto) < 1 /hpf (0-5) 10/31/17 08:41 Ur Squamous Epith Cells 2 /hpf (0-5) 10/31/17 08:41 - Hospital Course Hospital Course: pt is for discharge stable, PR ruled out, chest pain is Atypical. But CAD has to to be considered in a diabetic patient pt is feeling better Discharge Exam - Head Exam Head Exam: NORMAL INSPECTION - Eye Exam Eye Exam: EOMI, Normal appearance, PERRL Pupil Exam: NORMAL ACCOMODATION, PERRL - ENT Exam ENT Exam: Mucous Membranes Moist - Respiratory Exam Respiratory Exam: Clear to PA & Lateral - Cardiovascular Exam Cardiovascular Exam: REGULAR RHYTHM, +S1, +S2 - GI/Abdominal Exam GI & Abdominal Exam: Normal Bowel Sounds Discharge Plan - Discharge Medications Prescriptions: Olmesartan Medoxomil [Benicar] 20 mg PO DAILY 30 Days #30 tablet - Follow Up Plan Condition: IMPROVED Disposition: HOME/ ROUTINE Instructions: Chest Pain, High Blood Pressure (DC), Diabetes Diet , Diabetes Type 2 (DC), Low Salt Diet, Olmesartan Additional Instructions: Follow up with Dr. Byrnes in one week. Return to ED if symptoms return or worsen. Referrals: Pop Byrnes MD [Staff Provider] -
--- NOTE | 2017-11-03 15:43 | CARD ---
APPROVED REPORT EXAM: Two-dimensional and M-mode echocardiogram with Doppler and color Doppler. Other Information Quality : GoodRhythm : INDICATION Chest Pain Palpitations RISK FACTORS Hypertension Diabetes 2D DIMENSIONS IVSd0.9 (0.7-1.1cm)LVDd3.8 (3.9-5.9cm) PWd1.0 (0.7-1.1cm)LVDs2.6 (2.5-4.0cm) FS (%) 31.2 %LVEF (%)59.7 (>50%) M-Mode DIMENSIONS Left Atrium (MM)3.54 (2.5-4.0cm)Aortic Root2.72 (2.2-3.7cm) Aortic Cusp Exc.1.85 (1.5-2.0cm) Mitral Valve MV E Kugkmrqe62.8cm/sMV A Hoqnfuer74.2cm/sE/A ratio1.0 TDI E/Lateral E'0.0E/Medial E'0.0 Tricuspid Valve TR Peak [id number]/sTR Peak Gr.[id number] LEFT VENTRICLE The left ventricle is normal size. There is normal left ventricular wall thickness. The left ventricular function is normal. The left ventricular ejection fraction is within the normal range. There is normal LV segmental wall motion. The left ventricular diastolic function is normal. RIGHT VENTRICLE The right ventricle is normal size. ATRIA The left atrium size is normal. The right atrium size is normal. AORTIC VALVE The aortic valve is normal in structure. MITRAL VALVE Mitral regurgitation is trace to mild. TRICUSPID VALVE There is trace tricuspid regurgitation. <Conclusion> Normal LV systolic function. Diastolic dysfunction. Normal chamber size. Trace to mild MR. Trace TR.
== END 2017-11-02 20:38 | disposition home or self-care (01) ==
LOC: C.ER 07:48 → C.9E 10:41 → C.6T 11:19
PROVIDERS: ADMIT Internal Medicine; ATTEND Internal Medicine
DX: I10 Essential (primary) hypertension (principal); R07.9 Chest pain, unspecified; E11.65 Type 2 diabetes mellitus with hyperglycemia; R51 Headache; R10.9 Unspecified abdominal pain; R42 Dizziness and giddiness; E78.5 Hyperlipidemia, unspecified; Z85.43 Personal history of malignant neoplasm of ovary
CPT/HCPCS: 36415; 71046; 80048; 80053; 80061; 81001; 82553; 82948; 83036; 83690; 84443; 84484; 85025; 93005; 93306; 96360; 96361; 99285; G0378; J1650; J7030

== ENCOUNTER 2018-02-21 02:32 | Inpatient (IN) | payer OTHER ==
[2018-02-21 02:32] VITALS: BMI 31.8
--- NOTE | 2018-02-21 03:09 | C.PDOC ---
History Of Present Illness 47-year-old female, whose PMHx includes DM, HTN, Hyperlipidemia, and SVT, presents to the ED for evaluation of chest pain which began at around 0100 today. Patient also reports paresthesia to her bilateral hands. Patient has been evaluated by a neurologist in the past, had an EMG test done, and is due for an outpatient MRI. According to previous records, patient underwent a stress test three years ago, which was normal. She denies any other complaints at this time. Time Seen by Provider: 02/21/18 03:06 Chief Complaint (Nursing): Chest Pain History Per: Patient History/Exam Limitations: no limitations Onset/Duration Of Symptoms: Hrs Current Symptoms Are (Timing): Still Present Quality: "Pain" Additional History Per: Patient Past Medical History Reviewed: Historical Data, Nursing Documentation, Vital Signs Vital Signs: Last Vital Signs Temp 97.6 F 02/23/18 07:00 Pulse 88 02/23/18 10:00 Resp 20 02/23/18 07:00 BP 120/81 02/23/18 10:00 Pulse Ox 100 02/23/18 07:00 - Medical History PMH: Anxiety, Cardia Arrhythmia (Paroxysmal SVT.), Diabetes, HTN, Hypercholesterolemia, Malignancy (Ovarian CA) Denies: Chronic Kidney Disease Surgical History: Appendectomy Family History: States: Unknown Family Hx - Social History Hx Tobacco Use: No Hx Alcohol Use: No Hx Substance Use: No - Immunization History Hx Tetanus Toxoid Vaccination: No Hx Influenza Vaccination: Yes Hx Pneumococcal Vaccination: No Review Of Systems Cardiovascular: Positive for: Chest Pain Respiratory: Negative for: Shortness of Breath Neurological: Positive for: Other (paresthesia to bilateral hands ) Physical Exam - Physical Exam Appears: Non-toxic, No Acute Distress, Other (mildly anxious ) Skin: Normal Color, Warm, Dry Head: Atraumatic, Normacephalic Eye(s): bilateral: Normal Inspection Oral Mucosa: Moist Neck: Supple Chest: Symmetrical, No Deformity, No Tenderness Cardiovascular: Rhythm Regular, No Murmur, Other (tachycardic ) Respiratory: Normal Breath Sounds, No Rales, No Rhonchi, No Wheezing Extremity: Normal ROM, Capillary Refill (less than 2 seconds ) Neurological/Psych: Oriented x3, Normal Speech, Normal Cognition ED Course And Treatment - Laboratory Results Result Diagrams: 02/23/18 07:40 02/23/18 07:40 ECG: Interpreted By Me, Viewed By Me ECG Rhythm: Sinus Tachycardia Interpretation Of ECG: Sinus Tachycardia at rate 122bpm. Rate From EC O2 Sat by Pulse Oximetry: 96 (on RA ) Pulse Ox Interpretation: Normal Medical Decision Making Medical Decision Making: cp r/o acs. also reports b/l arm numbness s/p outpt neurology eval. Progress: Bloodwork, urinalysis, CXR, and EKG ordered and reviewed. Ativan IVP given. labs neg. case discussed with dr woodson acceptdebbie Disposition - Disposition Disposition: HOSPITALIZED Disposition Time: 10:00 Condition: STABLE - Clinical Impression Clinical Impression: Chest pain - Scribe Statement The provider has reviewed the documentation as recorded by the Scribe (Manuela Gresham) Provider Attestation: All medical record entries made by the Scribe were at my direction and personally dictated by me. I have reviewed the chart and agree that the record accurately reflects my personal performance of the history, physical exam, medical decision making, and the department course for this patient. I have also personally directed, reviewed, and agree with the discharge instructions and disposition. Decision To Admit - Pt Status Changed To: Hospital Disposition Of: Observation - . Bed Request Type: Telemetry Admitting Physician: Dylan Woodson Patient Diagnosis: Chest pain
[2018-02-21 04:02] LABS: BASO # 0.1 K/uL (0.0-0.2); BASO % 0.7 % (0.0-2.0); EOS # 0.1 K/uL (0.0-0.7); EOS % 0.9 % (0.0-4.0); HEMOGLOBIN 13.8 g/dL (11.0-16.0); LYMPH # 2.7 K/uL (1.0-4.3); MEAN CELL VOLUME 82.5 fL (81.0-99.0); MEAN CORPUSCULAR HEMOGLOBIN 27.6 pg (27.0-31.0); MEAN CORPUSCULAR HGB CONC 33.4 g/dL (33.0-37.0); MEAN PLATELET VOLUME 9.9 fL (7.2-11.7); MONO # 0.5 K/uL (0.0-0.8); MONO % 6.5 % (0.0-10.0); NEUT # 4.5 K/uL (1.8-7.0); NEUT % 56.9 % (50.0-75.0); RBC 5.02 Mil/uL (3.80-5.20); RED CELL DISTRIBUTION WIDTH 13.3 % (11.5-14.5); WHITE BLOOD COUNT 7.8 K/uL (4.8-10.8)
[2018-02-21 04:14] LABS: PROTHROMBIN TIME 11.4 SECONDS (9.7-12.2)
[2018-02-21 04:16] LABS: ALB/GLOB RATIO 1.2 (1.0-2.1); ALBUMIN 4.7 g/dL (3.5-5.0); BLOOD UREA NITROGEN 19 mg/dL (7-17); GFR NON-AFRICAN AMERICAN > 60
[2018-02-21 04:19] LABS: SQUAMOUS EPITHIAL 6 /hpf (0-5); URINE BILIRUBIN NEGATIVE (NEGATIVE); URINE BLOOD NEGATIVE (NEGATIVE); URINE CLARITY Hazy (Clear); URINE COLOR Yellow (YELLOW); URINE GLUCOSE (UA) NORMAL (Normal); URINE LEUKOCYTE ESTERASE NEG Leu/uL (Negative); URINE PROTEIN NEGATIVE (NEGATIVE); URINE UROBILINOGEN NORMAL mg/dL (0.2-1.0)
[2018-02-21 04:20] LABS: HCG,QUALITATIVE URINE NEGATIVE (NEGATIVE)
[2018-02-21 04:46] LABS: ALT/SGPT 31 U/L (9-52); AST/SGOT 36 U/L (14-36)
--- NOTE | 2018-02-21 08:13 | RAD ---
Date of service: 02/21/2018 PROCEDURE: CHEST RADIOGRAPH, 1 VIEW HISTORY: chest pain COMPARISON: 10/31/2017 FINDINGS: LUNGS: Techniques and projection very different Current lung volumes much less than before. Current projection portable and apical lordotic. PLEURA: No pneumothorax evaluation for small pleural effusions very limited given technique and large body habitus. CARDIOVASCULAR: Normal. OSSEOUS STRUCTURES: Bilateral shoulder arthrosis. VISUALIZED UPPER ABDOMEN: Normal. OTHER FINDINGS: None. IMPRESSION: Limited exam. Of the shallow lung volumes perceived no mid or upper lobe pathology seen. Especially limited evaluation of each costophrenic angle and left lung base. The increased soft tissue density left lung base may be summation of soft tissues. Consider PA with lateral with greater inspiration when patient can cooperate
--- NOTE | 2018-02-21 09:15 | RAD ---
Date of service: 02/21/2018 HISTORY: chest pain COMPARISON: Portable chest 02/21/2018 3:45 a.m.. TECHNIQUE: Chest PA and lateral FINDINGS: LUNGS: No active pulmonary disease. PLEURA: No significant pleural effusion identified. No pneumothorax apparent. CARDIOVASCULAR: Normal. OSSEOUS STRUCTURES: No significant abnormalities. VISUALIZED UPPER ABDOMEN: Normal. OTHER FINDINGS: None. IMPRESSION: No acute infiltrate bilaterally with left base clear in the interval. No pulmonary vascular congestion.
[2018-02-21] MEDS: Enoxaparin 40 mg Syringe SC SCH (09:56)
[2018-02-21] MEDS ORDERED: OLMESARTAN MEDOXOMIL 20 MG PO SCH (10:00)
[2018-02-21] MEDS: (Novolog) Insulin Aspart, Recombinant 100 u/ml 10 ml vial SC SCH ×3 (11:51→22:49)
[2018-02-21 16:27] LABS: CK-MB 1.32 ng/mL (0.0-3.38)
[2018-02-21 17:44] VITALS: RESP 20
[2018-02-21] MEDS ORDERED: Naproxen 550 mg Tab PO STA ×2 (20:11→20:46)
[2018-02-21 22:33] LABS: CK-MB 1.14 ng/mL (0.0-3.38)
--- NOTE | 2018-02-21 23:51 | CP.PCM.HP ---
History of Present Illness - History of Present Illness History of Present Illness: 47 years old female woke up early this AM complaining of anterior chest tightness, left sided low back pain and numbness of both hands. She had fallen from a stair at home a few days ago and hit her head, and back to the floor. She was also seen by a Neurologist in [facility], who told her that she has pinched nerve in the neck and had orderded an MRI of the cervical spine. She denies any shortness of breath, palpitation, sweating, nausea. She is known to have an IDDM , a HPTN, an obesity, a Hx of SVT and ovarian cancer. An echocardiogram done at in 11/2017 revealed normal LV systolic function. A stress MPI 3 years ago was normal. Her CXR is normal. ECG reveals a sinus tachycardia, otherwise, WNL. Serum TNI x 2 are normal. Present on Admission - Present on Admission Any Indicators Present on Admission: No Review of Systems - Cardiovascular Cardiovascular: Chest Pain at Rest - Musculoskeletal Additional comments: Numbness of both hands. Past Patient History - Infectious Disease Hx of Infectious Diseases: None - Tetanus Immunizations Tetanus Immunization: Unknown - Past Medical History & Family History Past Medical History?: Yes - Past Social History Smoking Status: Never Smoked Alcohol: None Drugs: Denies Home Situation {Lives}: With Family Domestic Violence: Negative - CARDIAC Hx Cardia Arrhythmia: Yes (Paroxysmal SVT.) Hx Hypercholesterolemia: Yes Hx Hypertension: Yes - PULMONARY Hx Respiratory Disorders: No - NEUROLOGICAL Hx Neurological Disorder: No Other/Comment: new onset of numbness in arms and legs. - HEENT Hx HEENT Problems: No - RENAL Hx Chronic Kidney Disease: No - ENDOCRINE/METABOLIC Hx Endocrine Disorders: Yes Hx Diabetes Mellitus Type 2: Yes - HEMATOLOGICAL/ONCOLOGICAL Hx Blood Disorders: No Hx Cancer: Yes (Ovarian cancer) Hx Chemotherapy: Yes - INTEGUMENTARY Hx Dermatological Problems: No - MUSCULOSKELETAL/RHEUMATOLOGICAL Hx Musculoskeletal Disorders: No Hx Falls: Yes - GASTROINTESTINAL Hx Gastrointestinal Disorders: No - GENITOURINARY/GYNECOLOGICAL Hx Genitourinary Disorders: Yes (ovarian ca) - PSYCHIATRIC Hx Anxiety: Yes Hx Substance Use: No - SURGICAL HISTORY Hx Appendectomy: Yes - ANESTHESIA Hx Anesthesia: Yes Hx Anesthesia Reactions: No Meds Allergies/Adverse Reactions: Allergies Allergy/AdvReac Type Severity Reaction Status Date / Time No Known Allergies Allergy Verified 10/31/17 08:12 Physical Exam - Constitutional Appears: Well, No Acute Distress - Head Exam Head Exam: NORMAL INSPECTION - Eye Exam Eye Exam: Normal appearance Pupil Exam: NORMAL ACCOMODATION - ENT Exam ENT Exam: Normal Exam - Neck Exam Neck exam: Positive for: Normal Inspection - Respiratory Exam Respiratory Exam: Clear to Auscultation Bilateral, NORMAL BREATHING PATTERN - Cardiovascular Exam Cardiovascular Exam: REGULAR RHYTHM - GI/Abdominal Exam GI & Abdominal Exam: Normal Bowel Sounds, Soft - Rectal Exam Rectal Exam: Deferred - Extremities Exam Additional comments: Numbness of the hands. - Back Exam Additional comments: Mild tenderness of the lower back. No bruise seen. - Neurological Exam Neurological exam: Alert, Oriented x3 - Psychiatric Exam Psychiatric exam: Anxious - Skin Skin Exam: Dry, Intact, Normal Color, Warm Results - Vital Signs Recent Vital Signs: Last Vital Signs Temp 98.9 F 02/21/18 16:00 Pulse 85 02/21/18 16:00 Resp 20 02/21/18 16:00 BP 132/85 02/21/18 16:00 Pulse Ox 100 02/21/18 16:00 - Labs Result Diagrams: 02/21/18 03:58 02/21/18 03:58 Labs: Laboratory Results - last 24 hr 02/21/18 02/21/18 02/21/18 02:55 03:13 03:58 WBC 7.8 RBC 5.02 Hgb 13.8 Hct 41.4 MCV 82.5 D MCH 27.6 MCHC 33.4 RDW 13.3 Plt Count 244 MPV 9.9 Neut % (Auto) 56.9 Lymph % (Auto) 35.0 [place] % (Auto) 6.5 Eos % (Auto) 0.9 Baso % (Auto) 0.7 Neut # (Auto) 4.5 Lymph # (Auto) 2.7 [place] # (Auto) 0.5 Eos # (Auto) 0.1 Baso # (Auto) 0.1 PT INR APTT D-Dimer, Quantitative Sodium Potassium Chloride Carbon Dioxide Anion Gap BUN Creatinine Est GFR ( Amer) Est GFR (Non-Af Amer) POC Glucose (mg/dL) 178 H Random Glucose Calcium Magnesium Total Bilirubin AST ALT Alkaline Phosphatase Total Creatine Kinase CK-MB (Mass) Troponin I Total Protein Albumin Globulin Albumin/Globulin Ratio Urine Color Yellow Urine Clarity Hazy Urine pH 5.0 Ur Specific [place] 1.020 Urine Protein Negative Urine Glucose (UA) Normal Urine Ketones Trace Urine Blood Negative Urine Nitrate Negative Urine Bilirubin Negative Urine Urobilinogen Normal Ur Leukocyte Esterase Neg Urine WBC (Auto) 3 Urine RBC (Auto) < 1 Ur Squamous Epith Cells 6 H Urine HCG, Qual Negative 02/21/18 02/21/18 02/21/18 03:58 03:58 04:46 WBC RBC Hgb Hct MCV MCH MCHC RDW Plt Count MPV Neut % (Auto) Lymph % (Auto) [place] % (Auto) Eos % (Auto) Baso % (Auto) Neut # (Auto) Lymph # (Auto) [place] # (Auto) Eos # (Auto) Baso # (Auto) PT 11.4 INR 1.0 APTT 33 D-Dimer, Quantitative 224 Sodium 141 Potassium 4.3 Chloride 104 Carbon Dioxide 22 Anion Gap 19 BUN 19 H Creatinine 0.7 Est GFR ( Amer) > 60 Est GFR (Non-Af Amer) > 60 POC Glucose (mg/dL) Random Glucose 188 H Calcium 10.0 Magnesium 2.0 Total Bilirubin 1.0 AST 36 ALT 31 Alkaline Phosphatase 138 H D Total Creatine Kinase CK-MB (Mass) Troponin I < 0.0120 Total Protein 8.5 H Albumin 4.7 Globulin 3.8 Albumin/Globulin Ratio 1.2 Urine Color Urine Clarity Urine pH Ur Specific [place] Urine Protein Urine Glucose (UA) Urine Ketones Urine Blood Urine Nitrate Urine Bilirubin Urine Urobilinogen Ur Leukocyte Esterase Urine WBC (Auto) Urine RBC (Auto) Ur Squamous Epith Cells Urine HCG, Qual 02/21/18 02/21/18 02/21/18 07:05 11:09 15:51 WBC RBC Hgb Hct MCV MCH MCHC RDW Plt Count MPV Neut % (Auto) Lymph % (Auto) [place] % (Auto) Eos % (Auto) Baso % (Auto) Neut # (Auto) Lymph # (Auto) [place] # (Auto) Eos # (Auto) Baso # (Auto) PT INR APTT D-Dimer, Quantitative Sodium Potassium Chloride Carbon Dioxide Anion Gap BUN Creatinine Est GFR ( Amer) Est GFR (Non-Af Amer) POC Glucose (mg/dL) 157 H 197 H Random Glucose Calcium Magnesium Total Bilirubin AST ALT Alkaline Phosphatase Total Creatine Kinase 230 H CK-MB (Mass) 1.32 Troponin I < 0.0120 Total Protein Albumin Globulin Albumin/Globulin Ratio Urine Color Urine Clarity Urine pH Ur Specific [place] Urine Protein Urine Glucose (UA) Urine Ketones Urine Blood Urine Nitrate Urine Bilirubin Urine Urobilinogen Ur Leukocyte Esterase Urine WBC (Auto) Urine RBC (Auto) Ur Squamous Epith Cells Urine HCG, Qual 02/21/18 02/21/18 02/21/18 17:20 21:11 21:43 WBC RBC Hgb Hct MCV MCH MCHC RDW Plt Count MPV Neut % (Auto) Lymph % (Auto) [place] % (Auto) Eos % (Auto) Baso % (Auto) Neut # (Auto) Lymph # (Auto) [place] # (Auto) Eos # (Auto) Baso # (Auto) PT INR APTT D-Dimer, Quantitative Sodium Potassium Chloride Carbon Dioxide Anion Gap BUN Creatinine Est GFR ( Amer) Est GFR (Non-Af Amer) POC Glucose (mg/dL) 97 92 Random Glucose Calcium Magnesium Total Bilirubin AST ALT Alkaline Phosphatase Total Creatine Kinase 214 H CK-MB (Mass) 1.14 Troponin I < 0.0120 Total Protein Albumin Globulin Albumin/Globulin Ratio Urine Color Urine Clarity Urine pH Ur Specific [place] Urine Protein Urine Glucose (UA) Urine Ketones Urine Blood Urine Nitrate Urine Bilirubin Urine Urobilinogen Ur Leukocyte Esterase Urine WBC (Auto) Urine RBC (Auto) Ur Squamous Epith Cells Urine HCG, Qual Assessment & Plan (1) Chest pain Assessment and Plan: [place], no ECG change and normal TNI's. For outpatient stress test, Status: Acute (2) Numbness and tingling in both hands Assessment and Plan: R/ocervical radiculopathy. PAtient refuses to have a close MRI of the neck, because she is claustrophobic. Will try Neurontin 300 mg PO HS. Status: Acute (3) Low back pain Assessment and Plan: robably due to contusion. Will order back XRay, and try NAproxen. Status: Acute Decision To Admit - Pt Status Changed To: Hospital Disposition Of: Observation - . Bed Request Type: Telemetry Admitting Physician: Dylan Woodson
[2018-02-22 07:15] LABS: BASO % 0.4 % (0.0-2.0); EOS # 0.1 K/uL (0.0-0.7); HEMOGLOBIN 14.7 g/dL (11.0-16.0); LYMPH # 2.9 K/uL (1.0-4.3); LYMPH % 44.7 % (20.0-40.0); MEAN CELL VOLUME 82.5 fL (81.0-99.0); MEAN CORPUSCULAR HEMOGLOBIN 28.1 pg (27.0-31.0); MEAN CORPUSCULAR HGB CONC 34.1 g/dL (33.0-37.0); MEAN PLATELET VOLUME 9.6 fL (7.2-11.7); MONO # 0.5 K/uL (0.0-0.8); MONO % 7.7 % (0.0-10.0); NEUT # 2.9 K/uL (1.8-7.0); NEUT % 45.2 % (50.0-75.0); NRBC % 0.1 % (0.0-2.0); RBC 5.25 Mil/uL (3.80-5.20); RED CELL DISTRIBUTION WIDTH 13.5 % (11.5-14.5); WHITE BLOOD COUNT 6.5 K/uL (4.8-10.8)
[2018-02-22 07:40] LABS: FREE T4 0.9 ng/dL (0.78-2.19)
[2018-02-22] MEDS: (Novolog) Insulin Aspart, Recombinant 100 u/ml 10 ml vial SC SCH ×4 (08:18→21:09)
[2018-02-22 08:22] LABS: ALB/GLOB RATIO 1.3 (1.0-2.1); ALBUMIN 4.6 g/dL (3.5-5.0); ALT/SGPT 37 U/L (9-52); AST/SGOT 40 U/L (14-36); BLOOD UREA NITROGEN 19 mg/dL (7-17); CALCIUM 9.9 mg/dl (8.6-10.4); GFR NON-AFRICAN AMERICAN > 60
[2018-02-22 09:30] LABS: PROLACTIN 14.3 ng/mL (3.0-18.9)
[2018-02-22] MEDS: Enoxaparin 40 mg Syringe SC SCH (10:37)
--- NOTE | 2018-02-22 10:57 | RAD ---
Date of service: 02/22/2018 PROCEDURE: Radiographs of the Lumbar Spine. HISTORY: s/p fall. Low back pain COMPARISON: No prior. FINDINGS: BONES: There is normal alignment of the lumbar vertebral bodies. There is normal lumbar lordosis. There is diffuse bone demineralization. There is no acute fracture, spondylolysis or spondylolisthesis. DISC SPACES: The disc heights are maintained. OTHER FINDINGS: None. IMPRESSION: No acute fracture, spondylolysis or spondylolisthesis.
--- NOTE | 2018-02-22 16:22 | CP.PCM.CON ---
History of Present Illness - History of Present Illness History of Present Illness: Neurology Consultation Note: Mrs. Cintron is a 47-year-old woman with a past medical history of ovarian cancer , DM, HTN, HLD, and thyroid nodules, who presented to the ED complaining of chest pain as well as a two week duration of progressive lower extremity weakness, stiffness and loss of dexterity and mobility in her upper extremities. She has neck pain, back pain and pain in her hips and knees. She had a fall about a week ago due to the weakness, fell backward and hit her head. Due to the constellation of symptoms, she was sent to a neurologist, Dr. Simmons, who performed an EMG/NCS and did not find any peripheral neuropathy, according to the patient. She requested an MRI of the cervical spine, but the patient is claustrophobic. Review of Systems - Review of Systems All systems: reviewed and no additional remarkable complaints except Past Patient History - Infectious Disease Hx of Infectious Diseases: None - Tetanus Immunizations Tetanus Immunization: Unknown - Past Medical History & Family History Past Medical History?: Yes - Past Social History Smoking Status: Never Smoked Alcohol: None Drugs: Denies Home Situation {Lives}: With Family Domestic Violence: Negative - CARDIAC Hx Cardia Arrhythmia: Yes (Paroxysmal SVT.) Hx Hypercholesterolemia: Yes Hx Hypertension: Yes - PULMONARY Hx Respiratory Disorders: No - NEUROLOGICAL Hx Neurological Disorder: No Other/Comment: new onset of numbness in arms and legs. - HEENT Hx HEENT Problems: No - RENAL Hx Chronic Kidney Disease: No - ENDOCRINE/METABOLIC Hx Endocrine Disorders: Yes Hx Diabetes Mellitus Type 2: Yes - HEMATOLOGICAL/ONCOLOGICAL Hx Blood Disorders: No Hx Cancer: Yes (Ovarian cancer) Hx Chemotherapy: Yes - INTEGUMENTARY Hx Dermatological Problems: No - MUSCULOSKELETAL/RHEUMATOLOGICAL Hx Musculoskeletal Disorders: No Hx Falls: Yes - GASTROINTESTINAL Hx Gastrointestinal Disorders: No - GENITOURINARY/GYNECOLOGICAL Hx Genitourinary Disorders: Yes (ovarian ca) - PSYCHIATRIC Hx Anxiety: Yes Hx Substance Use: No - SURGICAL HISTORY Hx Appendectomy: Yes - ANESTHESIA Hx Anesthesia: Yes Hx Anesthesia Reactions: No Meds Allergies/Adverse Reactions: Allergies Allergy/AdvReac Type Severity Reaction Status Date / Time No Known Allergies Allergy Verified 10/31/17 08:12 - Medications Medications: Current Medications Acetaminophen (Tylenol 325mg Tab) 650 mg PO Q6 PRN PRN Reason: Pain, moderate (4-7) Enoxaparin Sodium (Lovenox) 40 mg SC DAILY [facility] Last Admin: 02/22/18 10:37 Dose: 40 mg Insulin Aspart (Novolog) 0 unit SC [facility] PRN Reason: Protocol Last Admin: 02/22/18 13:07 Dose: 2 u Losartan Potassium (Cozaar) 50 mg PO DAILY [facility] Last Admin: 02/22/18 10:37 Dose: 50 mg Metoprolol Tartrate (Lopressor) 100 mg PO DAILY [facility] Last Admin: 02/22/18 10:37 Dose: 100 mg Rosuvastatin Calcium (Crestor) 20 mg PO HS [facility] Last Admin: 02/21/18 22:49 Dose: 20 mg Sitagliptin Phosphate (Januvia) 100 mg PO DAILY [facility] Last Admin: 02/22/18 10:37 Dose: 100 mg Physical Exam - Neurological Exam Additional comments: Awake, alert, oriented X3, fluent speech, no dysarthria, mental status is normal , mood/affect normal, notable generalized weakness with an shuffling pain- limited gait. Strength is less distally than proximally in the upper extremities 3/5 hand ostomy care nurse and 2/5 finger strength on abduction/adduction. Right hip flexion is 3/5 as compared with the left, which was 4/5. Reflexes are brisk. Plantar responses are normal. Sensation is intact. Romberg not tested. Results - Vital Signs Recent Vital Signs: Last Vital Signs Temp 98.7 F 02/22/18 08:00 Pulse 88 02/22/18 10:36 Resp 20 02/22/18 08:00 BP 124/81 02/22/18 10:36 Pulse Ox 99 02/22/18 11:21 - Labs Result Diagrams: 02/22/18 07:01 02/22/18 07:01 Labs: Laboratory Results - last 24 hr 02/21/18 02/21/18 02/21/18 15:51 17:20 21:11 WBC RBC Hgb Hct MCV MCH MCHC RDW Plt Count MPV Neut % (Auto) Lymph % (Auto) Meeker % (Auto) Eos % (Auto) Baso % (Auto) Neut # (Auto) Lymph # (Auto) Meeker # (Auto) Eos # (Auto) Baso # (Auto) ESR Sodium Potassium Chloride Carbon Dioxide Anion Gap BUN Creatinine Est GFR ( Amer) Est GFR (Non-Af Amer) POC Glucose (mg/dL) 97 92 Random Glucose Hemoglobin A1c Calcium Total Bilirubin AST ALT Alkaline Phosphatase Total Creatine Kinase 230 H CK-MB (Mass) 1.32 Troponin I < 0.0120 C-Reactive Protein Total Protein Albumin Globulin Albumin/Globulin Ratio Free T4 Free T3 pg/mL TSH 3rd Generation Prolactin 02/21/18 02/22/18 02/22/18 21:43 06:21 07:01 WBC RBC Hgb Hct MCV MCH MCHC RDW Plt Count MPV Neut % (Auto) Lymph % (Auto) Meeker % (Auto) Eos % (Auto) Baso % (Auto) Neut # (Auto) Lymph # (Auto) Meeker # (Auto) Eos # (Auto) Baso # (Auto) ESR Sodium Potassium Chloride Carbon Dioxide Anion Gap BUN Creatinine Est GFR ( Amer) Est GFR (Non-Af Amer) POC Glucose (mg/dL) 142 H Random Glucose Hemoglobin A1c 11.7 H Calcium Total Bilirubin AST ALT Alkaline Phosphatase Total Creatine Kinase 214 H CK-MB (Mass) 1.14 Troponin I < 0.0120 C-Reactive Protein Total Protein Albumin Globulin Albumin/Globulin Ratio Free T4 Free T3 pg/mL TSH 3rd Generation Prolactin 02/22/18 02/22/18 02/22/18 07:01 07:01 07:01 WBC 6.5 RBC 5.25 H Hgb 14.7 Hct 43.3 MCV 82.5 MCH 28.1 MCHC 34.1 RDW 13.5 Plt Count 251 MPV 9.6 Neut % (Auto) 45.2 L Lymph % (Auto) 44.7 H Meeker % (Auto) 7.7 Eos % (Auto) 2.0 Baso % (Auto) 0.4 Neut # (Auto) 2.9 Lymph # (Auto) 2.9 Meeker # (Auto) 0.5 Eos # (Auto) 0.1 Baso # (Auto) 0.0 ESR 18 Sodium 141 Potassium 4.0 Chloride 103 Carbon Dioxide 24 Anion Gap 18 BUN 19 H Creatinine 0.8 Est GFR ( Amer) > 60 Est GFR (Non-Af Amer) > 60 POC Glucose (mg/dL) Random Glucose 129 H Hemoglobin A1c Calcium 9.9 Total Bilirubin 0.7 AST 40 H ALT 37 Alkaline Phosphatase 114 Total Creatine Kinase 163 H CK-MB (Mass) Troponin I C-Reactive Protein 5.70 Total Protein 8.1 Albumin 4.6 Globulin 3.6 Albumin/Globulin Ratio 1.3 Free T4 0.90 Free T3 pg/mL 2.81 TSH 3rd Generation 1.87 Prolactin 14.3 02/22/18 11:56 WBC RBC Hgb Hct MCV MCH MCHC RDW Plt Count MPV Neut % (Auto) Lymph % (Auto) Meeker % (Auto) Eos % (Auto) Baso % (Auto) Neut # (Auto) Lymph # (Auto) Meeker # (Auto) Eos # (Auto) Baso # (Auto) ESR Sodium Potassium Chloride Carbon Dioxide Anion Gap BUN Creatinine Est GFR ( Amer) Est GFR (Non-Af Amer) POC Glucose (mg/dL) 191 H Random Glucose Hemoglobin A1c Calcium Total Bilirubin AST ALT Alkaline Phosphatase Total Creatine Kinase CK-MB (Mass) Troponin I C-Reactive Protein Total Protein Albumin Globulin Albumin/Globulin Ratio Free T4 Free T3 pg/mL TSH 3rd Generation Prolactin Assessment & Plan (1) Rapidly progressive weakness Assessment and Plan: The stiffness, pain and weakness that is more prominent distally than proximally , in the setting of prior ovarian cancer, is concerning for an auto-immune condition affecting muscles and nerves. The differential includes polymyositis , stiff person syndrome, auto-immune myopathies, etc. Will order ANAs, antibodies, ESR, CRP and auto-immune panel. Will rule out possible spinal cord involvement since she does have hyper-reflexia (concern for myelopathy). Will start her on solumedrol 1000 mg daily for 3 days to see if there is any improvement. Thank you for this consultation. Status: Acute
[2018-02-22] MEDS: Naproxen 550 mg Tab PO SCH (19:50)
--- NOTE | 2018-02-22 21:06 | CP.PCM.PN ---
Subjective - Date & Time of Evaluation Date of Evaluation: 02/22/18 Time of Evaluation: 15:45 - Subjective Subjective: Patient complaining of numbness of both hands, low back pain and weakness of both legs. Being evaluated by Neurology. PT and occupational therapy ordered. Lumbar spine XRay is normal. Telemetry: RSR. Objective - Vital Signs/Intake and Output Vital Signs (last 24 hours): Temp Pulse Resp BP Pulse Ox 98.3 F 79 20 112/77 100 02/22/18 16:00 02/22/18 16:00 02/22/18 16:00 02/22/18 16:00 02/22/18 16:00 - Medications Medications: Current Medications Enoxaparin Sodium (Lovenox) 40 mg SC DAILY [facility] Last Admin: 02/22/18 10:37 Dose: 40 mg Gabapentin (Neurontin) 300 mg PO BID [facility] Last Admin: 02/22/18 19:48 Dose: 300 mg Insulin Aspart (Novolog) 0 unit SC [facility] PRN Reason: Protocol Last Admin: 02/22/18 19:48 Dose: Not Given Losartan Potassium (Cozaar) 50 mg PO DAILY [facility] Last Admin: 02/22/18 10:37 Dose: 50 mg Metoprolol Tartrate (Lopressor) 100 mg PO DAILY [facility] Last Admin: 02/22/18 10:37 Dose: 100 mg Naproxen (Anaprox Ds) 550 mg PO BID [facility] Last Admin: 02/22/18 19:50 Dose: 550 mg Rosuvastatin Calcium (Crestor) 20 mg PO HS [facility] Last Admin: 02/21/18 22:49 Dose: 20 mg Sitagliptin Phosphate (Januvia) 100 mg PO DAILY [facility] Last Admin: 02/22/18 10:37 Dose: 100 mg - Labs Labs: 02/22/18 07:01 02/22/18 07:01 PT 11.4 SECONDS (9.7-12.2) 02/21/18 03:58 INR 1.0 02/21/18 03:58 APTT 33 SECONDS (21-34) 02/21/18 03:58 - Constitutional Appears: Well, No Acute Distress - Head Exam Head Exam: NORMAL INSPECTION - Eye Exam Eye Exam: Normal appearance - ENT Exam ENT Exam: Normal Exam - Neck Exam Neck Exam: Normal Inspection - Respiratory Exam Respiratory Exam: Clear to Ausculation Bilateral Additional comments: Tender left costo-chondral joint. - Cardiovascular Exam Cardiovascular Exam: REGULAR RHYTHM - GI/Abdominal Exam GI & Abdominal Exam: Soft, Normal Bowel Sounds - Rectal Exam Rectal Exam: Deferred - Extremities Exam Extremities Exam: Normal Inspection - Back Exam Back Exam: tenderness Additional comments: Mild tenderness of the left low back. - Neurological Exam Neurological Exam: Alert, Awake, Oriented x3 Additional comments: Mild weakness of both legs. - Psychiatric Exam Psychiatric exam: Anxious Assessment and Plan (1) Chest pain Assessment & Plan: Probably due to costochondritis. TNI's x 2 are normal. Status: Resolved (2) Numbness and tingling in both hands Assessment & Plan: And weakness of both legs. R/o cervical radiculopathy, r/o polyneuropathy. HgBA1C: 11. Patient is claustrophobic and request to be sedated totally if an MRI is be done. Will try Ativan 2mg IV before MRI. Status: Acute (3) Low back pain Assessment & Plan: Secondary to contusion following a fall. Try Naproxen to control the pain. Status: Acute
[2018-02-23 07:57] LABS: BASO % 0.6 % (0.0-2.0); EOS # 0.1 K/uL (0.0-0.7); EOS % 2.3 % (0.0-4.0); LYMPH # 2.9 K/uL (1.0-4.3); LYMPH % 45.8 % (20.0-40.0); MEAN CELL VOLUME 81.7 fL (81.0-99.0); MEAN CORPUSCULAR HEMOGLOBIN 28.3 pg (27.0-31.0); MEAN CORPUSCULAR HGB CONC 34.6 g/dL (33.0-37.0); MEAN PLATELET VOLUME 9.6 fL (7.2-11.7); MONO # 0.6 K/uL (0.0-0.8); MONO % 9.9 % (0.0-10.0); NEUT # 2.6 K/uL (1.8-7.0); NEUT % 41.4 % (50.0-75.0); NRBC % 0.1 % (0.0-2.0); RBC 4.96 Mil/uL (3.80-5.20); RED CELL DISTRIBUTION WIDTH 13.2 % (11.5-14.5); WHITE BLOOD COUNT 6.3 K/uL (4.8-10.8)
[2018-02-23] MEDS: (Novolog) Insulin Aspart, Recombinant 100 u/ml 10 ml vial SC SCH ×4 (08:06→21:11)
[2018-02-23 08:18] LABS: ALB/GLOB RATIO 1.2 (1.0-2.1); ALBUMIN 4.2 g/dL (3.5-5.0); ALT/SGPT 39 U/L (9-52); AST/SGOT 37 U/L (14-36); BLOOD UREA NITROGEN 19 mg/dL (7-17); GFR NON-AFRICAN AMERICAN > 60
[2018-02-23] MEDS: Enoxaparin 40 mg Syringe SC SCH (09:54)
[2018-02-23] MEDS: Naproxen 550 mg Tab PO SCH ×2 (09:54→17:42)
[2018-02-23] MEDS ORDERED: MethylPREDNISolone 1 gm Vial IV SCH (10:00)
[2018-02-23] MEDS: methylPREDNISolone 1 GM in Sodium Chloride 0.9% 100 ML IV SCH (11:00)
[2018-02-24] MEDS: (Novolog) Insulin Aspart, Recombinant 100 u/ml 10 ml vial SC SCH ×4 (07:37→21:27)
[2018-02-24] MEDS: Naproxen 550 mg Tab PO SCH ×2 (09:18→17:38)
[2018-02-24] MEDS: Enoxaparin 40 mg Syringe SC SCH (09:18)
[2018-02-24] MEDS: methylPREDNISolone 1 GM in Sodium Chloride 0.9% 100 ML IV SCH (09:23)
[2018-02-24] MEDS ORDERED: Magnesium Hydroxide Susp 30 ml UD PO ONE ×2 (12:21→13:46)
--- NOTE | 2018-02-24 13:46 | CP.PCM.PN ---
Subjective - Date & Time of Evaluation Date of Evaluation: 02/24/18 Time of Evaluation: 13:44 - Subjective Subjective: Patient still complaining of weakness of both legs and numbness of both hands. Blood glucose elevated secondary to Solumedrol IV. Will try to do MRI of the neck and low back in AM with sedation with Ativan IV. Objective - Vital Signs/Intake and Output Vital Signs (last 24 hours): Temp Pulse Resp BP Pulse Ox 97.6 F 100 H 20 145/88 100 02/24/18 07:00 02/24/18 07:00 02/24/18 07:00 02/24/18 07:00 02/24/18 07:00 Intake and Output: 02/24/18 02/24/18 06:59 18:59 Intake Total 600 Balance 600 - Medications Medications: Current Medications Enoxaparin Sodium (Lovenox) 40 mg SC DAILY [facility] Last Admin: 02/24/18 09:18 Dose: 40 mg Gabapentin (Neurontin) 300 mg PO BID [facility] Last Admin: 02/24/18 09:18 Dose: 300 mg Glipizide (Glucotrol Xl) 5 mg PO DAILY [facility] Methylprednisolone 1 gm/ (Sodium Chloride) 100 mls @ 200 mls/hr IV DAILY [facility] Stop: 02/26/18 10:01 Last Admin: 02/24/18 09:23 Dose: 200 mls/hr Insulin Aspart (Novolog) 0 unit SC [facility] PRN Reason: Protocol Last Admin: 02/24/18 12:13 Dose: 6 u Lorazepam (Ativan) 1 mg IVP ONCE PRN PRN Reason: Anxiety Losartan Potassium (Cozaar) 50 mg PO DAILY [facility] Last Admin: 02/24/18 09:18 Dose: 50 mg Metoprolol Tartrate (Lopressor) 100 mg PO DAILY [facility] Last Admin: 02/24/18 09:18 Dose: 100 mg Naproxen (Anaprox Ds) 550 mg PO BID [facility] Last Admin: 02/24/18 09:18 Dose: 550 mg Rosuvastatin Calcium (Crestor) 20 mg PO HS [facility] Last Admin: 02/23/18 21:11 Dose: 20 mg Sitagliptin Phosphate (Januvia) 100 mg PO DAILY [facility] Last Admin: 02/24/18 09:18 Dose: 100 mg - Labs Labs: 02/23/18 07:40 02/23/18 07:40 PT 11.4 SECONDS (9.7-12.2) 02/21/18 03:58 INR 1.0 02/21/18 03:58 APTT 33 SECONDS (21-34) 02/21/18 03:58 - Constitutional Appears: Well, No Acute Distress - Head Exam Head Exam: NORMAL INSPECTION - Eye Exam Eye Exam: Normal appearance Pupil Exam: NORMAL ACCOMODATION - ENT Exam ENT Exam: Normal Exam - Neck Exam Neck Exam: Normal Inspection - Respiratory Exam Respiratory Exam: Clear to Ausculation Bilateral, NORMAL BREATHING PATTERN - Cardiovascular Exam Cardiovascular Exam: REGULAR RHYTHM - GI/Abdominal Exam GI & Abdominal Exam: Soft, Normal Bowel Sounds - Rectal Exam Rectal Exam: Deferred - Exam Exam: NORMAL INSPECTION - Extremities Exam Additional comments: MIld weakness of both legs. - Back Exam Back Exam: NORMAL INSPECTION - Neurological Exam Neurological Exam: Alert, Oriented x3 Additional comments: Unsteady gait. - Psychiatric Exam Psychiatric exam: Anxious - Skin Skin Exam: Dry Assessment and Plan (1) Chest pain Status: Resolved (2) Numbness and tingling in both hands Status: Acute (3) Low back pain Status: Acute (4) Weakness of both legs Assessment & Plan: For MRI of the cervical and lumbar spines in AM. Status: Acute
[2018-02-24] MEDS: GlipiZIDE 5 mg SR Tab PO SCH (14:04)
[2018-02-25] MEDS ORDERED: (Novolog) Insulin Aspart, Recombinant 100 u/ml 10 ml vial SC ONE (02:15)
[2018-02-25] MEDS: (Novolog) Insulin Aspart, Recombinant 100 u/ml 10 ml vial SC SCH ×4 (08:37→21:40)
[2018-02-25] MEDS: methylPREDNISolone 1 GM in Sodium Chloride 0.9% 100 ML IV SCH (10:33)
[2018-02-25] MEDS: Naproxen 550 mg Tab PO SCH ×2 (10:33→18:23)
[2018-02-25] MEDS: GlipiZIDE 5 mg SR Tab PO SCH (10:33)
[2018-02-25] MEDS: Enoxaparin 40 mg Syringe SC SCH (10:33)
--- NOTE | 2018-02-25 11:33 | CARD ---
APPROVED REPORT Date of service: 02/21/2018 EKG Measurement Heart [id number] <Conclusion> Normal sinus rhythm Normal ECG
--- NOTE | 2018-02-25 11:52 | CARD ---
APPROVED REPORT Date of service: 02/21/2018 EKG Measurement Heart [id number] <Conclusion> Sinus tachycardia Cannot rule out Anterior infarct, age undetermined Abnormal ECG
[2018-02-25] MEDS ORDERED: Gadodiamide 287 mg/ml 20 ml IV ONE (15:40)
--- NOTE | 2018-02-25 16:48 | MRI ---
Date of service: 02/25/2018 PROCEDURE: MR THORACIC SPINE WITH AND WITHOUT CONTRAST HISTORY: Lower extremity weakness COMPARISON: None available. TECHNIQUE: Multiecho multiplanar sequences were performed through the thoracic spine with and without the use of intravenous contrast. 16 cc Omniscan was injected intravenously FINDINGS: ALIGNMENT: There is normal alignment of the thoracic vertebral bodies. There is normal thoracic kyphosis. VERTEBRA: Vertebral body height are preserved. No acute fracture or bone destruction. MARROW: Marrow signal is within normal limits. PARASPINAL SOFT TISSUES: The paraspinous soft tissues are normal. CORD: The thoracic cord is normal in contour, caliber and has normal intrinsic signal. No volume loss, signal abnormality or syrinx. DISCS: No disc herniation, spinal canal stenosis, or neuroforaminal narrowing. ENHANCEMENT: No abnormal intramedullary or leptomeningeal enhancement. OTHER FINDINGS: None. IMPRESSION: Normal pre and post contrast enhanced MRI of the thoracic spine
--- NOTE | 2018-02-25 22:40 | CP.PCM.PN ---
Subjective - Date & Time of Evaluation Date of Evaluation: 02/25/18 Time of Evaluation: 19:40 - Subjective Subjective: Patient still with leg weakness. On Solumedrol resulting in elevated blood glucose. MRI of the thoracic spines: WNL. Objective - Vital Signs/Intake and Output Vital Signs (last 24 hours): Temp Pulse Resp BP Pulse Ox 97.4 F L 92 H 20 137/80 97 02/25/18 16:05 02/25/18 16:05 02/25/18 16:05 02/25/18 16:05 02/25/18 16:05 Intake and Output: 02/25/18 02/26/18 18:59 06:59 Intake Total 500 Balance 500 - Medications Medications: Current Medications Bisacodyl (Dulcolax) 10 mg RI ONCE PRN PRN Reason: Constipation Enoxaparin Sodium (Lovenox) 40 mg SC DAILY [facility] Last Admin: 02/25/18 10:33 Dose: 40 mg Gabapentin (Neurontin) 300 mg PO BID [facility] Last Admin: 02/25/18 18:23 Dose: 300 mg Glipizide (Glucotrol Xl) 5 mg PO DAILY [facility] Last Admin: 02/25/18 10:33 Dose: 5 mg Methylprednisolone 1 gm/ (Sodium Chloride) 100 mls @ 200 mls/hr IV DAILY [facility] Stop: 02/26/18 10:01 Last Admin: 02/25/18 10:33 Dose: 200 mls/hr Insulin Aspart (Novolog) 0 unit SC ACHS [facility] PRN Reason: Protocol Last Admin: 02/25/18 21:40 Dose: Not Given Losartan Potassium (Cozaar) 50 mg PO DAILY [facility] Last Admin: 02/25/18 10:33 Dose: 50 mg Metoprolol Tartrate (Lopressor) 100 mg PO DAILY [facility] Last Admin: 02/25/18 10:31 Dose: 100 mg Naproxen (Anaprox Ds) 550 mg PO BID [facility] Last Admin: 02/25/18 18:23 Dose: 550 mg Rosuvastatin Calcium (Crestor) 20 mg PO HS [facility] Last Admin: 02/25/18 21:40 Dose: 20 mg Sitagliptin Phosphate (Januvia) 100 mg PO DAILY [facility] Last Admin: 02/25/18 10:31 Dose: 100 mg - Labs Labs: 02/23/18 07:40 02/23/18 07:40 PT 11.4 SECONDS (9.7-12.2) 02/21/18 03:58 INR 1.0 02/21/18 03:58 APTT 33 SECONDS (21-34) 02/21/18 03:58 - Constitutional Appears: Well, No Acute Distress - Head Exam Head Exam: NORMAL INSPECTION - Eye Exam Eye Exam: Normal appearance - ENT Exam ENT Exam: Normal Exam - Neck Exam Neck Exam: Normal Inspection - Respiratory Exam Respiratory Exam: Clear to Ausculation Bilateral, NORMAL BREATHING PATTERN - Cardiovascular Exam Cardiovascular Exam: REGULAR RHYTHM - GI/Abdominal Exam GI & Abdominal Exam: Soft, Normal Bowel Sounds - Rectal Exam Rectal Exam: Deferred - Extremities Exam Extremities Exam: Normal Inspection - Back Exam Back Exam: NORMAL INSPECTION - Neurological Exam Neurological Exam: Alert, Awake, Oriented x3 Additional comments: Mild weakness of both legs. - Psychiatric Exam Psychiatric exam: Anxious - Skin Skin Exam: Dry, Intact Assessment and Plan (1) Chest pain Status: Resolved (2) Numbness and tingling in both hands Assessment & Plan: Awaiting MRI of the cervical spines. Status: Chronic (3) Low back pain Status: Acute (4) Weakness of both legs Assessment & Plan: Awaiting MRI of the lumbar spines. Status: Acute
[2018-02-26] MEDS: (Novolog) Insulin Aspart, Recombinant 100 u/ml 10 ml vial SC SCH ×4 (08:56→21:37)
[2018-02-26] MEDS ORDERED: Gadodiamide 287 mg/ml 20 ml IV ONE (12:13)
[2018-02-26] MEDS: Naproxen 550 mg Tab PO SCH ×2 (13:09→17:59)
[2018-02-26] MEDS: GlipiZIDE 5 mg SR Tab PO SCH (13:09)
[2018-02-26] MEDS: Enoxaparin 40 mg Syringe SC SCH (13:09)
[2018-02-26] MEDS: methylPREDNISolone 1 GM in Sodium Chloride 0.9% 100 ML IV SCH (13:10)
--- NOTE | 2018-02-26 14:50 | CP.PCM.PN ---
Subjective - Date & Time of Evaluation Date of Evaluation: 02/26/18 Time of Evaluation: 14:47 - Subjective Subjective: Patient just had MRI of the cervical and lumbar spines. Still slightly sedated, and constipated Objective - Vital Signs/Intake and Output Vital Signs (last 24 hours): Temp Pulse Resp BP Pulse Ox 97.5 F L 85 20 140/82 99 02/26/18 00:00 02/26/18 00:00 02/26/18 00:00 02/26/18 00:00 02/26/18 00:00 Intake and Output: 02/26/18 02/26/18 06:59 18:59 Intake Total 500 Balance 500 - Medications Medications: Current Medications Bisacodyl (Dulcolax) 10 mg CO ONCE PRN PRN Reason: Constipation Enoxaparin Sodium (Lovenox) 40 mg SC DAILY [facility] Last Admin: 02/26/18 13:09 Dose: 40 mg Gabapentin (Neurontin) 300 mg PO BID [facility] Last Admin: 02/26/18 13:10 Dose: 300 mg Glipizide (Glucotrol Xl) 5 mg PO DAILY [facility] Last Admin: 02/26/18 13:09 Dose: 5 mg Insulin Aspart (Novolog) 0 unit SC [facility]; Protocol Last Admin: 02/26/18 13:10 Dose: 4 u Losartan Potassium (Cozaar) 50 mg PO DAILY [facility] Last Admin: 02/26/18 13:09 Dose: 50 mg Metoprolol Tartrate (Lopressor) 100 mg PO DAILY [facility] Last Admin: 02/26/18 13:09 Dose: 100 mg Naproxen (Anaprox Ds) 550 mg PO BID [facility] Last Admin: 02/26/18 13:09 Dose: 550 mg Rosuvastatin Calcium (Crestor) 20 mg PO [facility] Last Admin: 02/25/18 21:40 Dose: 20 mg Sitagliptin Phosphate (Januvia) 100 mg PO DAILY [facility] Last Admin: 02/26/18 13:09 Dose: 100 mg - Labs Labs: 02/23/18 07:40 02/23/18 07:40 PT 11.4 SECONDS (9.7-12.2) 02/21/18 03:58 INR 1.0 02/21/18 03:58 APTT 33 SECONDS (21-34) 02/21/18 03:58 - Constitutional Appears: Well, No Acute Distress - Head Exam Head Exam: NORMAL INSPECTION - Eye Exam Eye Exam: Normal appearance Pupil Exam: NORMAL ACCOMODATION - ENT Exam ENT Exam: Normal Exam - Neck Exam Neck Exam: Normal Inspection - Respiratory Exam Respiratory Exam: Clear to Ausculation Bilateral, NORMAL BREATHING PATTERN - Cardiovascular Exam Cardiovascular Exam: REGULAR RHYTHM - GI/Abdominal Exam GI & Abdominal Exam: Soft, Normal Bowel Sounds - Rectal Exam Rectal Exam: Deferred - Extremities Exam Extremities Exam: Normal Inspection Additional comments: Mild weakness of the lower extremities. - Back Exam Back Exam: NORMAL INSPECTION - Neurological Exam Neurological Exam: Alert, Oriented x3 - Psychiatric Exam Psychiatric exam: Anxious - Skin Skin Exam: Dry, Normal Color Assessment and Plan (1) Numbness and tingling in both hands Assessment & Plan: Awaiting MRI result of the cervical spines. Status: Chronic (2) Low back pain Status: Acute (3) Weakness of both legs Assessment & Plan: Awaiting MRI result of the lumbar spines. To continue PT, and OT. Status: Acute
--- NOTE | 2018-02-26 16:05 | MRI ---
Date of service: 02/26/2018 PROCEDURE: MR LUMBAR SPINE WITH AND WITHOUT CONTRAST HISTORY: lower extremity weakness COMPARISON: None available. TECHNIQUE: Multiecho multiplanar sequences were performed through the lumbar spine with and without the use of intravenous contrast. 18 cc of Omniscan was utilized for intravenous contrast (single injection was given for both the cervical and lumbar spine MRI examinations performed today 02/26/2018). FINDINGS: Normal lumbar lordosis. Vertebral body heights are preserved. Marrow signal unremarkable. Adequate hydration is seen throughout the lumbar intervertebral disc spaces with exception of L5-S1 which is markedly desiccated. Conus medullaris unremarkable at the level of L3 superior endplate. Prevertebral and paraspinal soft tissues are unremarkable. No abnormal epidural or intrathecal enhancement. T12-L1: No disc herniation, spinal canal stenosis or neural foraminal narrowing. L1-2: No disc herniation, spinal canal stenosis or neural foraminal narrowing. L2-3: No disc herniation, spinal canal stenosis or neural foraminal narrowing. L3-4: No disc herniation, spinal canal stenosis or neural foraminal narrowing. L4-5: No disc herniation or neural foraminal stenosis bilaterally. Moderate facet joint degenerative changes narrow the bilateral lateral recesses mildly. L5-S1: No disc herniation, spinal canal stenosis or neural foraminal narrowing. OTHER FINDINGS: None. IMPRESSION: Unremarkable pre and post contrast enhanced MRI of the lumbar spine. Mild narrowing of the bilateral lateral recesses at L4-5 due to facet joint degenerative changes. No disc herniation or generalized central canal stenosis throughout the examination.
--- NOTE | 2018-02-26 16:20 | MRI ---
Date of service: 02/26/2018 PROCEDURE: MR CERVICAL SPINE WITH AND WITHOUT CONTRAST HISTORY: bilateral arm weakness COMPARISON: None available. TECHNIQUE: Multiecho multiplanar sequences were performed through the cervical spine with and without the use of intravenous contrast. FINDINGS: There is mild straightening of the cervical curvature without fracture or spondylolisthesis identified. No suspicious matter signal changes are seen. Diffuse disc desiccation is identified. The cervical cord appears mild to mildly impinged at C4-5 with limited cord reaction but no enhancement. Cervical cord above this C4 and below the C5 level is normal in course caliber contour and intrinsic signal. Upper thoracic cord segment down to the approximate T4 level appears unremarkable. Craniocervical junction unremarkable. Prevertebral paraspinal soft tissues appear diffusely unremarkable. No suspicious epidural or intrathecal enhancement identified. C2-3: No disc herniation, spinal canal stenosis or neural foraminal narrowing. C3-4: Limited disc bulging is appreciated encroaching ventral nerve roots without causing significant central canal stenosis overall. No neural foraminal stenosis bilaterally. No disc herniation. C4-5: There is a large generalized disc bulge with left paracentral disc herniation causing [id number] central canal stenosis and indenting the ventral cord and flattening it somewhat. Wwth-ui-[id number] local reactive cord signal changes are identified here. C5-C6: Limited disc bulging is seen without herniation encroaching ventral nerve roots but without causing generalized central canal stenosis. No neural foraminal stenosis. C6-C7: No disc herniation, spinal canal stenosis or neuroforaminal narrowing. C7-T1: No disc herniation, spinal canal stenosis or neural foraminal narrowing. OTHER FINDINGS: None. IMPRESSION: 1. A generalized C4-5 disc bulge is associated with a small left paracentral disc herniation impinging the cervical cord with artv-if-onywuglc cord reaction present here. Kfnm-fv-moqdkfov central canal stenosis results. No significant neural foraminal stenosis bilaterally. 2. C3-4 disc bulge encroaches ventral nerve roots without causing generalized central canal stenosis. 3. Straightened cervical curvature. Findings discussed with Dr. Stoner with written down and read back verification 02/26/2018 4:10 p.m..
[2018-02-27] MEDS: (Novolog) Insulin Aspart, Recombinant 100 u/ml 10 ml vial SC SCH ×4 (06:43→21:26)
[2018-02-27] MEDS: GlipiZIDE 5 mg SR Tab PO SCH (10:44)
[2018-02-27] MEDS: Naproxen 550 mg Tab PO SCH ×2 (12:12→17:15)
--- NOTE | 2018-02-27 23:56 | CP.PCM.PN ---
Subjective - Date & Time of Evaluation Date of Evaluation: 02/27/18 Time of Evaluation: 20:00 - Subjective Subjective: Patient still with some numbness of the left hand and weakness of the legs. MRI of the cervical spine reveals herniated cervical disc with moderate stenosis at the level of C4-C5, and mild to moderate impingement of the spinal cord at that level. Patient is scheduled for a cervical spine surgery in AM, but, she expresses reluctance for it. Objective - Vital Signs/Intake and Output Vital Signs (last 24 hours): Temp Pulse Resp BP Pulse Ox 98 F 80 20 123/78 97 02/27/18 15:57 02/27/18 15:57 02/27/18 15:57 02/27/18 15:57 02/27/18 15:57 Intake and Output: 02/27/18 02/28/18 18:59 06:59 Intake Total 500 500 Balance 500 500 - Medications Medications: Current Medications Bisacodyl (Dulcolax) 10 mg [place] ONCE PRN PRN Reason: Constipation Gabapentin (Neurontin) 300 mg PO BID [facility] Last Admin: 02/27/18 17:15 Dose: 300 mg Glipizide (Glucotrol Xl) 5 mg PO DAILY [facility] Last Admin: 02/27/18 10:44 Dose: 5 mg Insulin Aspart (Novolog) 0 unit SC [facility]; Protocol Last Admin: 02/27/18 21:26 Dose: Not Given Losartan Potassium (Cozaar) 50 mg PO DAILY [facility] Last Admin: 02/27/18 10:43 Dose: 50 mg Metoprolol Tartrate (Lopressor) 100 mg PO DAILY [facility] Last Admin: 02/27/18 10:43 Dose: 100 mg Naproxen (Anaprox Ds) 550 mg PO BID [facility] Last Admin: 02/27/18 17:15 Dose: 550 mg Rosuvastatin Calcium (Crestor) 20 mg PO HS [facility] Last Admin: 02/27/18 21:30 Dose: 20 mg Sitagliptin Phosphate (Januvia) 100 mg PO DAILY [facility] Last Admin: 02/27/18 10:43 Dose: 100 mg - Labs Labs: 02/23/18 07:40 02/23/18 07:40 PT 11.4 SECONDS (9.7-12.2) 02/21/18 03:58 INR 1.0 02/21/18 03:58 APTT 33 SECONDS (21-34) 02/21/18 03:58 - Constitutional Appears: No Acute Distress - Head Exam Head Exam: NORMAL INSPECTION - Eye Exam Eye Exam: Normal appearance Pupil Exam: NORMAL ACCOMODATION - ENT Exam ENT Exam: Normal Exam - Neck Exam Neck Exam: Normal Inspection - Respiratory Exam Respiratory Exam: Clear to Ausculation Bilateral, NORMAL BREATHING PATTERN - Cardiovascular Exam Cardiovascular Exam: REGULAR RHYTHM - GI/Abdominal Exam GI & Abdominal Exam: Soft, Normal Bowel Sounds - Rectal Exam Rectal Exam: Deferred - Extremities Exam Extremities Exam: Normal Inspection - Back Exam Back Exam: NORMAL INSPECTION - Neurological Exam Neurological Exam: Alert, Awake, Oriented x3 - Psychiatric Exam Psychiatric exam: Anxious - Skin Skin Exam: Dry, Intact Assessment and Plan (1) Numbness and tingling in both hands Assessment & Plan: MRI of the cervical spines reveals disc herniation with mild to moderate impingement of the spinal cord at the level of C4-C5. Scheduled for cervical spine surgery in AM, but the patient is still hesitant about it. Status: Chronic (2) Low back pain Status: Acute (3) Weakness of both legs Status: Acute
--- NOTE | 2018-02-28 06:17 | CON ---
DATE: 02/27/2018 REASON FOR CONSULTATION: Spinal cord compression in the neck. HISTORY OF PRESENT ILLNESS: The patient is a 47-year-old young lady who states that for the past couple of years, she has had some funny feeling in her legs. She had a workup for arthritis which was negative. She was complaining of some issues with her arms, much more in the right than the left, and she is right handed. She had an EMG nerve conduction study done which reportedly did not show any evidence of peripheral neuropathy as she is a diabetic.. However, she states with no antecedent trauma two weeks ago, things became markedly worse. 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 She states she could not really sign her name anymore. She could not do fine motor work such as buttoning buttons etc. and was dropping things. She does really complain of pain in the legs per se, but just states that she cannot really walk because her balance and gait completely off. A week ago, she was up on a small stool to put closet and lost the balance and fell backward, striking her lower back and her head. No loss of consciousness. She does not state that anything got markedly worse in terms of symptoms that she had prior to the fall compared to after the fall. She now has pain in the neck and the lower back which she did not have before but again presumably this is musculoskeletal from the fall itself. No loss of bowel or bladder control. She was admitted on 02/21/2018 with complaints of chest pain and problems with her extremities. An MRI of her cervical spine done yesterday revealed cord compression, and a consult was called. PAST MEDICAL HISTORY: Significant for fbv-wssteat-doucprvcv diabetes as mentioned. She also has a history of hypertension, hyperlipidemia, ovarian cancer, and thyroid nodules. She has a history of paroxysmal supraventricular tachycardia also. She had an echocardiogram done at this hospital in 11/2017 which she states she was told it was normal. MEDICATIONS: As listed on the chart. ALLERGIES: SHE HAS NO KNOWN ALLERGIES. PAST SURGICAL HISTORY: Significant for appendectomy. SOCIAL HISTORY: No history of smoking or alcohol. PHYSICAL EXAMINATION: On examination, she can flex her chin to about a fingerbreadth upper sternal notch. She has reasonable extension. Lateral rotation right to left side about 40 degrees at which time she complains of right-sided discomfort and she rotate by 30 degrees to the right. She is tender to palpation of the trapezial muscles on each side. She moves both upper extremities actively. She has pretty good strength in her shoulder abductors and even her biceps, but distally the wrist muscle groups do not seem to be quite as strong. 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 She has a positive Pace's sign. Good distal pulses. Reflexes are intact. Reflexes are little brisker on the lower extremities. No clonus is present. Babinski showed toes downgoing. She states the sensation is intact to light touch in both lower extremities. MRIs were reviewed. Thoracic and lumbar MRIs were done, read as, not showing any significant abnormalities. However, the MRI of her cervical spine demonstrates a central right-sided herniated disk at C4-C5 that is causing significant spinal cord compression with flattening. There are some reactive signal changes within the cord at that level. The radiologist read this as a left disk herniation with a generalized disk bulge, but I think it is more worse on the right side which goes along with her clinical presentation. She has some mild changes at the other levels, but again no obvious disk herniation at C3-C4 nor C4-C5 with some limited bulging at the disk, but again no encroachment upon the cord at all. ASSESSMENT AND PLAN: Impression is that of a cervical myelopathy at C4-C5. Certainly, she gets classic presentation in terms of her upper and lower extremity complaints. This has gotten markedly worse over the past two weeks to the point that she is having significant difficulty just to ambulating and is losing ability to function with her hands. At this point, I would strongly recommend one-level anterior cervical diskectomy and fusion at C4-C5. I explained that the biggest reason to do this is to stop the progression of the symptoms and then hopefully, given her young age, allow her to get recovery of function. That is still more difficult to protect in some with diabetes even if the EMG did not show any evidence of a peripheral neuropathy in the past. I reviewed the MRI with the patient as well as her family members. They are going to talk it over and make a decision. If she is medically cleared and they agree, then we will do this tomorrow morning. The risks and technique were explained to her including problems with possible getting the bone to fuse and the most common one being difficulty swallowing having a sore throat after the surgery. She did inquire about when she could go back to work and again I explained quickly she does or does not recover her functional abilities in terms of being able to ambulate and use her hands. Thank you for allowing me to participate in the care of your patient. Nolan Loza MD
[2018-02-28] MEDS: (Novolog) Insulin Aspart, Recombinant 100 u/ml 10 ml vial SC SCH ×4 (08:24→21:17)
[2018-02-28] MEDS: Naproxen 550 mg Tab PO SCH ×2 (10:05→17:08)
[2018-02-28] MEDS: GlipiZIDE 5 mg SR Tab PO SCH (10:05)
[2018-02-28] MEDS: Enoxaparin 40 mg Syringe SC SCH (17:08)
--- NOTE | 2018-03-01 01:24 | CP.PCM.PN ---
Subjective - Date & Time of Evaluation Date of Evaluation: 02/28/18 Time of Evaluation: 18:30 - Subjective Subjective: Patient agrrees to have neck surgery at [facility] by Dr Jesus Sommers. Objective - Vital Signs/Intake and Output Vital Signs (last 24 hours): Temp Pulse Resp BP Pulse Ox 98.3 F 70 20 130/89 99 02/28/18 23:30 02/28/18 23:30 02/28/18 23:30 02/28/18 23:30 02/28/18 23:30 Intake and Output: 02/28/18 03/01/18 18:59 06:59 Intake Total 300 Balance 300 - Medications Medications: Current Medications Bisacodyl (Dulcolax) 10 mg [place] ONCE PRN PRN Reason: Constipation Enoxaparin Sodium (Lovenox) 40 mg SC DAILY [facility] Last Admin: 02/28/18 17:08 Dose: 40 mg Gabapentin (Neurontin) 300 mg PO BID [facility] Last Admin: 02/28/18 17:08 Dose: 300 mg Glipizide (Glucotrol Xl) 5 mg PO DAILY [facility] Last Admin: 02/28/18 10:05 Dose: 5 mg Insulin Aspart (Novolog) 0 unit SC [facility]; Protocol Last Admin: 02/28/18 21:17 Dose: Not Given Losartan Potassium (Cozaar) 50 mg PO DAILY [facility] Last Admin: 02/28/18 10:04 Dose: 50 mg Metoprolol Tartrate (Lopressor) 100 mg PO DAILY [facility] Last Admin: 02/28/18 10:04 Dose: 100 mg Rosuvastatin Calcium (Crestor) 20 mg PO [facility] Last Admin: 02/28/18 21:19 Dose: 20 mg Sitagliptin Phosphate (Januvia) 100 mg PO DAILY [facility] Last Admin: 02/28/18 10:05 Dose: 100 mg - Labs Labs: 02/23/18 07:40 02/23/18 07:40 PT 11.4 SECONDS (9.7-12.2) 02/21/18 03:58 INR 1.0 02/21/18 03:58 APTT 33 SECONDS (21-34) 02/21/18 03:58 - Constitutional Appears: Well, Chronically Ill - Head Exam Head Exam: NORMAL INSPECTION - Eye Exam Eye Exam: Normal appearance - ENT Exam ENT Exam: Normal Exam - Neck Exam Neck Exam: Normal Inspection - Respiratory Exam Respiratory Exam: Clear to Ausculation Bilateral, NORMAL BREATHING PATTERN - Cardiovascular Exam Cardiovascular Exam: REGULAR RHYTHM - GI/Abdominal Exam GI & Abdominal Exam: Soft, Normal Bowel Sounds - Rectal Exam Rectal Exam: Deferred - Exam Exam: NORMAL INSPECTION - Extremities Exam Extremities Exam: Normal Inspection Additional comments: Mild weakness of the legs. - Back Exam Back Exam: NORMAL INSPECTION - Neurological Exam Neurological Exam: Abnormal Gait, Alert, Awake, Oriented x3 - Psychiatric Exam Psychiatric exam: Anxious - Skin Skin Exam: Dry, Intact, Normal Color Assessment and Plan (1) Numbness and tingling in both hands Assessment & Plan: Herniated C4-C5 cervical disc impinging the spinal cord. For neck surgey on Sunday03/04/2018 at [facility]. Status: Chronic (2) Low back pain Status: Acute (3) Weakness of both legs Assessment & Plan: Secondary to herniated C4-C5 cervical disc impinging the cervical spinal cord. For surgery on 03/04/2018 at [facility]. Status: Acute
[2018-03-01] MEDS: (Novolog) Insulin Aspart, Recombinant 100 u/ml 10 ml vial SC SCH ×4 (07:13→21:54)
[2018-03-01] MEDS: Enoxaparin 40 mg Syringe SC SCH (09:43)
[2018-03-01] MEDS: GlipiZIDE 5 mg SR Tab PO SCH (09:43)
--- NOTE | 2018-03-01 23:32 | CP.PCM.PN ---
Subjective - Date & Time of Evaluation Date of Evaluation: 03/01/18 Time of Evaluation: 20:00 - Subjective Subjective: Patient has no additional complaint. Awaiting transfer to [facility] for cervical spine surgery. Objective - Vital Signs/Intake and Output Vital Signs (last 24 hours): Temp Pulse Resp BP Pulse Ox 98.9 F 78 20 109/72 100 03/01/18 16:00 03/01/18 16:00 03/01/18 16:00 03/01/18 16:00 03/01/18 16:00 Intake and Output: 03/01/18 03/02/18 18:59 06:59 Intake Total 600 Balance 600 - Medications Medications: Current Medications Bisacodyl (Dulcolax) 10 mg [place] ONCE PRN PRN Reason: Constipation Enoxaparin Sodium (Lovenox) 40 mg SC DAILY [facility] Last Admin: 03/01/18 09:43 Dose: 40 mg Gabapentin (Neurontin) 300 mg PO BID [facility] Last Admin: 03/01/18 17:05 Dose: 300 mg Glipizide (Glucotrol Xl) 5 mg PO DAILY [facility] Last Admin: 03/01/18 09:43 Dose: 5 mg Insulin Aspart (Novolog) 0 unit SC [facility]; Protocol Last Admin: 03/01/18 21:54 Dose: Not Given Losartan Potassium (Cozaar) 50 mg PO DAILY [facility] Last Admin: 03/01/18 09:43 Dose: 50 mg Metoprolol Tartrate (Lopressor) 100 mg PO DAILY [facility] Last Admin: 03/01/18 09:43 Dose: 100 mg Rosuvastatin Calcium (Crestor) 20 mg PO [facility] Last Admin: 03/01/18 21:05 Dose: 20 mg Sitagliptin Phosphate (Januvia) 100 mg PO DAILY [facility] Last Admin: 03/01/18 09:43 Dose: 100 mg - Labs Labs: 02/23/18 07:40 02/23/18 07:40 PT 11.4 SECONDS (9.7-12.2) 02/21/18 03:58 INR 1.0 02/21/18 03:58 APTT 33 SECONDS (21-34) 02/21/18 03:58 - Constitutional Appears: Well, Chronically Ill - Head Exam Head Exam: NORMAL INSPECTION - Eye Exam Eye Exam: Normal appearance Pupil Exam: NORMAL ACCOMODATION - ENT Exam ENT Exam: Normal Exam - Neck Exam Neck Exam: Normal Inspection - Respiratory Exam Respiratory Exam: Clear to Ausculation Bilateral, NORMAL BREATHING PATTERN - Cardiovascular Exam Cardiovascular Exam: REGULAR RHYTHM - GI/Abdominal Exam GI & Abdominal Exam: Soft, Normal Bowel Sounds - Rectal Exam Rectal Exam: Deferred - Extremities Exam Additional comments: Weakness of both legs. - Back Exam Back Exam: NORMAL INSPECTION - Neurological Exam Neurological Exam: Abnormal Gait, Alert, Awake, Oriented x3 - Psychiatric Exam Psychiatric exam: Anxious - Skin Skin Exam: Dry, Intact, Warm Assessment and Plan (1) Numbness and tingling in both hands Assessment & Plan: Herniated cervical disc at S4-S5 impinging on the cervical spinal cord. For surgery on Sunday. Status: Chronic (2) Low back pain Status: Acute (3) Weakness of both legs Assessment & Plan: Herniated cervical disc impinging the cervical spinal cord. Status: Acute
[2018-03-02] MEDS: (Novolog) Insulin Aspart, Recombinant 100 u/ml 10 ml vial SC SCH ×4 (08:42→21:39)
[2018-03-02] MEDS: GlipiZIDE 5 mg SR Tab PO SCH (10:09)
[2018-03-02] MEDS: Enoxaparin 40 mg Syringe SC SCH (10:09)
--- NOTE | 2018-03-02 23:55 | CP.PCM.PN ---
Subjective - Date & Time of Evaluation Date of Evaluation: 03/02/18 Time of Evaluation: 15:30 - Subjective Subjective: Patient still with leg weakness. Awaiting transfer to [facility] for decompression of the cervical spinal cord. Objective - Vital Signs/Intake and Output Vital Signs (last 24 hours): Temp Pulse Resp BP Pulse Ox 98.1 F 78 20 123/72 99 03/02/18 14:00 03/02/18 14:00 03/02/18 14:00 03/02/18 14:00 03/02/18 14:00 - Medications Medications: Current Medications Bisacodyl (Dulcolax) 10 mg [place] ONCE PRN PRN Reason: Constipation Enoxaparin Sodium (Lovenox) 40 mg SC DAILY [facility] Last Admin: 03/02/18 10:09 Dose: 40 mg Gabapentin (Neurontin) 300 mg PO BID [facility] Last Admin: 03/02/18 17:14 Dose: 300 mg Glipizide (Glucotrol Xl) 5 mg PO DAILY [facility] Last Admin: 03/02/18 10:09 Dose: 5 mg Insulin Aspart (Novolog) 0 unit SC [facility]; Protocol Last Admin: 03/02/18 21:39 Dose: Not Given Losartan Potassium (Cozaar) 50 mg PO DAILY [facility] Last Admin: 03/02/18 10:09 Dose: 50 mg Metoprolol Tartrate (Lopressor) 100 mg PO DAILY [facility] Last Admin: 03/02/18 10:09 Dose: 100 mg Rosuvastatin Calcium (Crestor) 20 mg PO [facility] Last Admin: 03/02/18 21:44 Dose: 20 mg Sitagliptin Phosphate (Januvia) 100 mg PO DAILY [facility] Last Admin: 03/02/18 10:09 Dose: 100 mg - Labs Labs: 02/23/18 07:40 02/23/18 07:40 PT 11.4 SECONDS (9.7-12.2) 02/21/18 03:58 INR 1.0 02/21/18 03:58 APTT 33 SECONDS (21-34) 02/21/18 03:58 - Constitutional Appears: Well, No Acute Distress - Head Exam Head Exam: NORMAL INSPECTION - Eye Exam Eye Exam: Normal appearance Pupil Exam: NORMAL ACCOMODATION - ENT Exam ENT Exam: Normal Exam - Neck Exam Neck Exam: Normal Inspection - Respiratory Exam Respiratory Exam: Clear to Ausculation Bilateral, NORMAL BREATHING PATTERN - Cardiovascular Exam Cardiovascular Exam: REGULAR RHYTHM - GI/Abdominal Exam GI & Abdominal Exam: Soft, Normal Bowel Sounds - Rectal Exam Rectal Exam: Deferred - Extremities Exam Extremities Exam: Normal Inspection - Back Exam Back Exam: NORMAL INSPECTION - Neurological Exam Neurological Exam: Abnormal Gait, Alert, Awake, Oriented x3 - Psychiatric Exam Psychiatric exam: Anxious - Skin Skin Exam: Dry, Intact, Normal Color, Warm Assessment and Plan (1) Numbness and tingling in both hands Status: Chronic (2) Low back pain Status: Acute (3) Weakness of both legs Status: Acute
[2018-03-03] MEDS ORDERED: Oxycodone/Acetaminophen 5/325 mg Tab PO PRN (08:05)
[2018-03-03] MEDS: (Novolog) Insulin Aspart, Recombinant 100 u/ml 10 ml vial SC SCH ×4 (08:42→21:53)
[2018-03-03] MEDS: Enoxaparin 40 mg Syringe SC SCH (09:32)
[2018-03-03] MEDS: GlipiZIDE 5 mg SR Tab PO SCH (09:32)
[2018-03-04] MEDS: Enoxaparin 40 mg Syringe SC SCH (09:34)
[2018-03-04] MEDS: GlipiZIDE 5 mg SR Tab PO SCH (09:34)
[2018-03-04] MEDS: (Novolog) Insulin Aspart, Recombinant 100 u/ml 10 ml vial SC SCH ×3 (09:34→17:49)
[2018-03-04 11:40] VITALS: TEMP 98.3
--- NOTE | 2018-03-04 15:48 | CP.PCM.PN ---
Subjective - Date & Time of Evaluation Date of Evaluation: 03/04/18 Time of Evaluation: 13:45 - Subjective Subjective: Patient complaining of mild pain in the left eye. No dizziness, no headache. Still with mild weakness of the legs. For transfer to [facility] today for a cervical cord decompression. Objective - Vital Signs/Intake and Output Vital Signs (last 24 hours): Temp Pulse Resp BP Pulse Ox 98.3 F 78 20 133/84 100 03/04/18 07:39 03/04/18 07:39 03/04/18 07:39 03/04/18 07:39 03/04/18 07:39 - Medications Medications: Current Medications Bisacodyl (Dulcolax) 10 mg [place] ONCE PRN PRN Reason: Constipation Enoxaparin Sodium (Lovenox) 40 mg SC DAILY [facility] Last Admin: 03/04/18 09:34 Dose: 40 mg Gabapentin (Neurontin) 300 mg PO BID [facility] Last Admin: 03/04/18 09:34 Dose: 300 mg Glipizide (Glucotrol Xl) 5 mg PO DAILY [facility] Last Admin: 03/04/18 09:34 Dose: 5 mg Insulin Aspart (Novolog) 0 unit SC [facility]; Protocol Last Admin: 03/04/18 11:57 Dose: 4 units Losartan Potassium (Cozaar) 50 mg PO DAILY [facility] Last Admin: 03/04/18 09:34 Dose: 50 mg Metoprolol Tartrate (Lopressor) 100 mg PO DAILY [facility] Last Admin: 03/04/18 09:34 Dose: 100 mg Oxycodone/Acetaminophen (Percocet 5/325 Mg Tab) 1 tab PO Q4H PRN PRN Reason: Pain, moderate (4-7) Stop: 03/06/18 08:06 Last Admin: 03/03/18 08:42 Dose: 1 tab Rosuvastatin Calcium (Crestor) 20 mg PO HS [facility] Last Admin: 03/03/18 21:54 Dose: 20 mg Sitagliptin Phosphate (Januvia) 100 mg PO DAILY [facility] Last Admin: 03/04/18 09:34 Dose: 100 mg - Labs Labs: 02/23/18 07:40 02/23/18 07:40 PT 11.4 SECONDS (9.7-12.2) 02/21/18 03:58 INR 1.0 02/21/18 03:58 APTT 33 SECONDS (21-34) 02/21/18 03:58 - Constitutional Appears: Well, No Acute Distress - Head Exam Head Exam: NORMAL INSPECTION - Eye Exam Eye Exam: Normal appearance Pupil Exam: NORMAL ACCOMODATION - ENT Exam ENT Exam: Normal Exam - Neck Exam Neck Exam: Normal Inspection - Respiratory Exam Respiratory Exam: Clear to Ausculation Bilateral, NORMAL BREATHING PATTERN - Cardiovascular Exam Cardiovascular Exam: REGULAR RHYTHM - GI/Abdominal Exam GI & Abdominal Exam: Soft, Normal Bowel Sounds - Rectal Exam Rectal Exam: Deferred - Extremities Exam Additional comments: Mild weakness of the lower extremities. - Neurological Exam Neurological Exam: Abnormal Gait, Alert, Awake, Oriented x3 - Psychiatric Exam Psychiatric exam: Anxious - Skin Skin Exam: Dry, Intact, Normal Color, Warm Assessment and Plan (1) Numbness and tingling in both hands Assessment & Plan: Cervical cord compression from herniated cervical disc C4-C5. For a depression of the cervical cord at [facility] by Dr Jesus Sommers. Status: Chronic (2) Low back pain Status: Acute (3) Weakness of both legs Assessment & Plan: From a cervical compression due to a herniated cervical disc C4-C5. To be transferred to [facility] for a cervical cord decompression. Status: Acute
[2018-03-04 16:13] VITALS: BP 116/79; PULSE 85; O2SAT 98
== END 2018-03-04 20:11 | disposition short-term general hospital (02) | DRG 552 ==
LOC: C.ER 02:32 → INTOOBSV 04:51 → C.9E 04:51 → C.5S 06:34 → OBSVTOIN 02-23 16:56 → INTOOBSV 02-23 16:56
PROVIDERS: ADMIT Internal Medicine Cardiovascular Disease; ATTEND Internal Medicine Cardiovascular Disease
DX: M50.021 Cervical disc disorder at C4-C5 level with myelopathy (principal); I47.1 Supraventricular tachycardia; G95.29 Other cord compression; E78.5 Hyperlipidemia, unspecified; F40.240 Claustrophobia; I10 Essential (primary) hypertension; Z85.43 Personal history of malignant neoplasm of ovary; E66.9 Obesity, unspecified; R29.2 Abnormal reflex; E11.65 Type 2 diabetes mellitus with hyperglycemia; T38.0X5A Adverse effect of glucocorticoids and synthetic analogues, initial encounter; R53.1 Weakness; R20.2 Paresthesia of skin; Z79.4 Long term (current) use of insulin

== ENCOUNTER 2018-09-01 00:16 | Observation (INO) | payer OTHER ==
[2018-09-01 00:16] VITALS: BMI 32.9
[2018-09-01 01:08] LABS: BASO # 0.1 K/uL (0.0-0.2); BASO % 0.7 % (0.0-2.0); EOS # 0.1 K/uL (0.0-0.7); HEMOGLOBIN 14.2 g/dL (11.0-16.0); LYMPH # 2.4 K/uL (1.0-4.3); MEAN CELL VOLUME 83.3 fL (81.0-99.0); MEAN CORPUSCULAR HEMOGLOBIN 27.8 pg (27.0-31.0); MEAN CORPUSCULAR HGB CONC 33.3 g/dL (33.0-37.0); MEAN PLATELET VOLUME 9.8 fL (7.2-11.7); MONO # 0.6 K/uL (0.0-0.8); NEUT # 6.2 K/uL (1.8-7.0); NEUT % 66.3 % (50.0-75.0); RBC 5.12 Mil/uL (3.80-5.20); RED CELL DISTRIBUTION WIDTH 13.8 % (11.5-14.5); WHITE BLOOD COUNT 9.3 K/uL (4.8-10.8)
[2018-09-01 01:22] LABS: ALB/GLOB RATIO 1.5 (1.0-2.1); ALBUMIN 4.8 g/dL (3.5-5.0); BLOOD UREA NITROGEN 13 mg/dL (7-17); CALCIUM 10.1 mg/dl (8.6-10.4); GFR NON-AFRICAN AMERICAN > 60
[2018-09-01 01:23] LABS: ALT/SGPT 20 U/L (9-52); AST/SGOT 59 U/L (14-36)
[2018-09-01 01:32] LABS: B-TYPE NATRIURETIC PEPTIDE 18.9 pg/mL (0-450)
[2018-09-01] MEDS ORDERED: (Novolin R) Insulin Human Regular 100 units/ml vial IV STA (01:36)
[2018-09-01] MEDS ORDERED: (Novolin R) Insulin Human Regular 100 units/ml vial ONE (01:46)
--- NOTE | 2018-09-01 02:21 | C.PDOC ---
History Of Present Illness 47 year old female presents with dizziness, headache, and blurry vision. Patient claims she typically has well controlled blood pressure and diabetes, took her normal dose of meds today. Time Seen by Provider: 09/01/18 00:39 Chief Complaint (Nursing): Dizziness/Lightheaded History Per: Patient History/Exam Limitations: no limitations Onset/Duration Of Symptoms: Hrs Current Symptoms Are (Timing): Still Present Recent travel outside of the [place]: No Past Medical History Reviewed: Historical Data, Nursing Documentation, Vital Signs Vital Signs: Last Vital Signs Temp 98.6 F 09/01/18 00:33 Pulse 116 H 09/01/18 01:28 Resp 15 09/01/18 01:28 BP 165/102 H 09/01/18 01:28 Pulse Ox 97 09/01/18 00:44 - Medical History PMH: Anxiety, Cardia Arrhythmia (Paroxysmal SVT.), Diabetes, HTN, Hyperch olesterolemia, Malignancy (Ovarian CA) Denies: Chronic Kidney Disease Surgical History: Appendectomy Family History: States: Unknown Family Hx - Social History Hx Tobacco Use: No Hx Alcohol Use: No Hx Substance Use: No - Immunization History Hx Tetanus Toxoid Vaccination: No Hx Influenza Vaccination: Yes Hx Pneumococcal Vaccination: No Review Of Systems Constitutional: Positive for: Other (Intentional weight loss due to change in diet, fingerstick usually 120-30 in the morning but typically check blood sugar after meals.). Negative for: Fever, Chills Eyes: Positive for: Vision Change (Blurry) Cardiovascular: Negative for: Chest Pain, Palpitations Respiratory: Negative for: Cough, Shortness of Breath Gastrointestinal: Negative for: Nausea, Vomiting Neurological: Positive for: Headache, Dizziness. Negative for: Weakness, Numbness Physical Exam - Physical Exam Appears: Non-toxic, No Acute Distress, Other (Obese black female) Skin: Normal Color, Warm Head: Atraumatic, Normacephalic Eye(s): bilateral: Normal Inspection, PERRL, EOMI Oral Mucosa: Moist Neck: Normal, No Midline Cervical Tenderness, No Paracervical Tenderness, Supple Chest: Symmetrical, No Tenderness Cardiovascular: Rhythm Regular Respiratory: Normal Breath Sounds, No Rales, No Rhonchi, No Wheezing Gastrointestinal/Abdominal: Soft, No Tenderness Neurological/Psych: Oriented x3, Normal Speech ED Course And Treatment - Laboratory Results Result Diagrams: 09/01/18 01:04 09/01/18 01:04 Lab Results: Troponin I < 0.0120 ng/mL (0.00-0.120) 09/01/18 01:04 NT-Pro-B Natriuret Pep 18.9 pg/mL (0-450) 09/01/18 01:04 Total Bilirubin 1.1 mg/dL (0.2-1.3) 09/01/18 01:04 AST 59 U/L (14-36) H D 09/01/18 01:04 ALT 20 U/L (9-52) 09/01/18 01:04 Alkaline Phosphatase 178 U/L (38-126) H D 09/01/18 01:04 Total Protein 7.9 g/dL (6.3-8.3) 09/01/18 01:04 Albumin 4.8 g/dL (3.5-5.0) 09/01/18 01:04 Globulin 3.2 gm/dL (2.2-3.9) 09/01/18 01:04 Albumin/Globulin Ratio 1.5 (1.0-2.1) 09/01/18 01:04 Lab Interpretation: Abnormal (glu 385H) ECG: Interpreted By Me ECG Rhythm: Sinus Tachycardia ECG Interpretation: Abnormal Rate From EC O2 Sat by Pulse Oximetry: 97 Pulse Ox Interpretation: Normal - Radiology CXR: Interpreted by Me CXR Interpretation: Yes: No Acute Disease Progress Note: insulin/labetolol Reevaluation Time: :19 Reassessment Condition: Improved - Physician Consult Information Outcome Of Conversation: 0220: d/w Dr. Dorothy Woodson, PMD, ok to tele Obs Medical Decision Making Medical Decision Making: uncontrolled DM/HTN atypical drug regimen taking losartan @ 11A Checking FS's AFTER meals educated. Disposition Doctor Will See Patient In The: Hospital Counseled Patient/Family Regarding: Studies Performed, Diagnosis - Disposition Disposition: HOSPITALIZED Disposition Time: 02:21 Condition: GOOD - Clinical Impression Clinical Impression: Diabetes, Uncontrolled hypertension - Scribe Statement The provider has reviewed the documentation as recorded by the Scribe Danie Ibrahim All medical record entries made by the Scribe were at my direction and personally dictated by me. I have reviewed the chart and agree that the record accurately reflects my personal performance of the history, physical exam, medical decision making, and the department course for this patient. I have also personally directed, reviewed, and agree with the discharge instructions and disposition.
[2018-09-01 02:58] LABS: SQUAMOUS EPITHIAL 6 /hpf (0-5); URINE BILIRUBIN NEGATIVE (NEGATIVE); URINE BLOOD NEGATIVE (NEGATIVE); URINE CLARITY Clear (Clear); URINE COLOR Yellow (YELLOW); URINE GLUCOSE (UA) 3+ mg/dL (Normal); URINE LEUKOCYTE ESTERASE NEG Leu/uL (Negative); URINE PROTEIN NEGATIVE (NEGATIVE)
[2018-09-01] MEDS: (Novolog) Insulin Aspart, Recombinant 100 u/ml 10 ml vial SC SCH ×4 (08:35→21:57)
[2018-09-01] MEDS: Enoxaparin 40 mg Syringe SC SCH (09:56)
[2018-09-01] MEDS: Metoprolol Succinate 100 mg XL Tab PO SCH (09:56)
--- NOTE | 2018-09-01 13:17 | RAD ---
Date of service: 09/01/2018 PROCEDURE: CHEST RADIOGRAPH, 1 VIEW HISTORY: SOB COMPARISON: Comparison is made with 02/21/2018 FINDINGS: LUNGS: Clear. PLEURA: No pneumothorax or pleural fluid seen. CARDIOVASCULAR: No aortic atherosclerotic calcification present. Normal. OSSEOUS STRUCTURES: No significant abnormalities. VISUALIZED UPPER ABDOMEN: Normal. OTHER FINDINGS: None. IMPRESSION: No active disease.
[2018-09-01 16:01] VITALS: RESP 20
--- NOTE | 2018-09-01 22:11 | CP.PCM.HP ---
History of Present Illness - History of Present Illness History of Present Illness: 47 years old female came to te ED at [facility] complaining of a headache, dizziness and blurred vision for the past few days. The patient denies any nausea, any weakness, any fever, any cough, In the ED, her BP was 210/110 and he r blood glucose was 360 mg%. She is known to have a hypertension, a non-insulin dependent diabetes mellitus, an obesity, a history of ovarian cancer, and intermittent supraventricular tachycardia, a recent cervical spine surgery for a cervical cord compression, with weakness of the left arm and both legs. In the ED, her CXR was normal, an EKG was also normal. She was given PO Labetolol, and S/c regular insulin. Her BP and blood glucose normalized, but she is still has headache and dizziness. Present on Admission - Present on Admission Any Indicators Present on Admission: No Review of Systems - EENT Eyes: Blurred Vision - Neurological Neurological: Dizziness, Headaches Past Patient History - Infectious Disease Hx of Infectious Diseases: None - Tetanus Immunizations Tetanus Immunization: Unknown - Past Medical History & Family History Past Medical History?: Yes - Past Social History Smoking Status: Never Smoked - CARDIAC Hx Cardia Arrhythmia: Yes (Paroxysmal SVT.) Hx Hypercholesterolemia: Yes Hx Hypertension: Yes - PULMONARY Hx Respiratory Disorders: No - NEUROLOGICAL Hx Neurological Disorder: No Other/Comment: new onset of numbness in arms and legs. burning sensation - HEENT Hx HEENT Problems: No - RENAL Hx Chronic Kidney Disease: No - ENDOCRINE/METABOLIC Hx Endocrine Disorders: Yes Hx Diabetes Insipidus: Yes Hx Diabetes Mellitus Type 1: Yes Hx Diabetes Mellitus Type 2: Yes - HEMATOLOGICAL/ONCOLOGICAL Hx Blood Disorders: No Hx Cancer: Yes (Ovarian cancer) Hx Chemotherapy: Yes - INTEGUMENTARY Hx Dermatological Problems: No - MUSCULOSKELETAL/RHEUMATOLOGICAL Hx Musculoskeletal Disorders: No Hx Falls: Yes - GASTROINTESTINAL Hx Gastrointestinal Disorders: No - GENITOURINARY/GYNECOLOGICAL Hx Genitourinary Disorders: Yes (ovarian ca) Hx Ovarian Cancer: Yes - PSYCHIATRIC Hx Anxiety: Yes Hx Substance Use: No - SURGICAL HISTORY Hx Appendectomy: Yes - ANESTHESIA Hx Anesthesia: Yes Hx Anesthesia Reactions: No Meds Allergies/Adverse Reactions: Allergies Allergy/AdvReac Type Severity Reaction Status Date / Time No Known Allergies Allergy Verified 09/01/18 00:29 Physical Exam - Constitutional Appears: Well, No Acute Distress - Head Exam Head Exam: NORMAL INSPECTION - Eye Exam Eye Exam: Normal appearance - ENT Exam ENT Exam: Normal Exam - Neck Exam Neck exam: Positive for: Normal Inspection - Respiratory Exam Respiratory Exam: Clear to Auscultation Bilateral, NORMAL BREATHING PATTERN Additional comments: Tender left costochondral joints. - Cardiovascular Exam Cardiovascular Exam: REGULAR RHYTHM - GI/Abdominal Exam GI & Abdominal Exam: Normal Bowel Sounds, Soft - Rectal Exam Rectal Exam: Deferred - Extremities Exam Extremities exam: Positive for: normal inspection - Back Exam Back exam: NORMAL INSPECTION - Neurological Exam Neurological exam: Alert, Normal Gait, Oriented x3 - Psychiatric Exam Psychiatric exam: Anxious - Skin Skin Exam: Dry, Intact, Normal Color, Warm Results - Vital Signs Recent Vital Signs: Last Vital Signs Temp 97.7 F 09/01/18 15:00 Pulse 89 09/01/18 16:10 Resp 20 09/01/18 15:00 BP 121/84 09/01/18 15:00 Pulse Ox 96 09/01/18 20:00 - Labs Result Diagrams: 09/01/18 01:04 09/01/18 01:04 Labs: Laboratory Results - last 24 hr 09/01/18 09/01/18 09/01/18 01:04 01:04 02:50 WBC 9.3 RBC 5.12 Hgb 14.2 Hct 42.7 MCV 83.3 MCH 27.8 MCHC 33.3 RDW 13.8 Plt Count 232 MPV 9.8 Neut % (Auto) 66.3 Lymph % (Auto) 26.0 [place] % (Auto) 6.0 Eos % (Auto) 1.0 Baso % (Auto) 0.7 Neut # (Auto) 6.2 Lymph # (Auto) 2.4 [place] # (Auto) 0.6 Eos # (Auto) 0.1 Baso # (Auto) 0.1 Sodium 136 Potassium 4.6 Chloride 101 Carbon Dioxide 25 Anion Gap 16 BUN 13 Creatinine 0.9 Est GFR ( Amer) > 60 Est GFR (Non-Af Amer) > 60 POC Glucose (mg/dL) Random Glucose 385 H D Calcium 10.1 Total Bilirubin 1.1 AST 59 H D ALT 20 Alkaline Phosphatase 178 H D Troponin I < 0.0120 NT-Pro-B Natriuret Pep 18.9 Total Protein 7.9 Albumin 4.8 Globulin 3.2 Albumin/Globulin Ratio 1.5 Urine Color Yellow Urine Clarity Clear Urine pH 6.0 Ur Specific [place] 1.026 Urine Protein Negative Urine Glucose (UA) 3+ H Urine Ketones Trace Urine Blood Negative Urine Nitrate Negative Urine Bilirubin Negative Urine Urobilinogen 2.0 H Ur Leukocyte Esterase Neg Urine WBC (Auto) 3 Urine RBC (Auto) 2 Ur Squamous Epith Cells 6 H 09/01/18 09/01/18 09/01/18 02:53 06:21 12:34 WBC RBC Hgb Hct MCV MCH MCHC RDW Plt Count MPV Neut % (Auto) Lymph % (Auto) [place] % (Auto) Eos % (Auto) Baso % (Auto) Neut # (Auto) Lymph # (Auto) [place] # (Auto) Eos # (Auto) Baso # (Auto) Sodium Potassium Chloride Carbon Dioxide Anion Gap BUN Creatinine Est GFR ( Amer) Est GFR (Non-Af Amer) POC Glucose (mg/dL) 300 H 188 H 169 H Random Glucose Calcium Total Bilirubin AST ALT Alkaline Phosphatase Troponin I NT-Pro-B Natriuret Pep Total Protein Albumin Globulin Albumin/Globulin Ratio Urine Color Urine Clarity Urine pH Ur Specific [place] Urine Protein Urine Glucose (UA) Urine Ketones Urine Blood Urine Nitrate Urine Bilirubin Urine Urobilinogen Ur Leukocyte Esterase Urine WBC (Auto) Urine RBC (Auto) Ur Squamous Epith Cells 09/01/18 16:54 WBC RBC Hgb Hct MCV MCH MCHC RDW Plt Count MPV Neut % (Auto) Lymph % (Auto) [place] % (Auto) Eos % (Auto) Baso % (Auto) Neut # (Auto) Lymph # (Auto) [place] # (Auto) Eos # (Auto) Baso # (Auto) Sodium Potassium Chloride Carbon Dioxide Anion Gap BUN Creatinine Est GFR ( Amer) Est GFR (Non-Af Amer) POC Glucose (mg/dL) 131 H Random Glucose Calcium Total Bilirubin AST ALT Alkaline Phosphatase Troponin I NT-Pro-B Natriuret Pep Total Protein Albumin Globulin Albumin/Globulin Ratio Urine Color Urine Clarity Urine pH Ur Specific [place] Urine Protein Urine Glucose (UA) Urine Ketones Urine Blood Urine Nitrate Urine Bilirubin Urine Urobilinogen Ur Leukocyte Esterase Urine WBC (Auto) Urine RBC (Auto) Ur Squamous Epith Cells Assessment & Plan (1) Uncontrolled hypertension Assessment and Plan: To continue same home BP meds. Low salt diet. Status: Acute (2) Uncontrolled diabetes mellitus Assessment and Plan: To renew all meds and control blood glucose with Novolog according to Accucheck. Status: Acute (3) Headache Assessment and Plan: Will do MRI of the head, in a patient with a history of ovarian cancer. Status: Acute Decision To Admit - Pt Status Changed To: Hospital Disposition Of: Observation - . Bed Request Type: Telemetry Admitting Physician: Dylan Woodson
[2018-09-02] MEDS: (Novolog) Insulin Aspart, Recombinant 100 u/ml 10 ml vial SC SCH ×3 (07:47→17:05)
[2018-09-02 08:53] VITALS: O2SAT 98
[2018-09-02] MEDS: Metoprolol Succinate 100 mg XL Tab PO SCH (10:27)
[2018-09-02] MEDS: Enoxaparin 40 mg Syringe SC SCH (10:28)
--- NOTE | 2018-09-02 11:42 | MRI ---
Date of service: 09/02/2018 PROCEDURE: MRI BRAIN WITHOUT CONTRAST HISTORY: Headache and dizziness. COMPARISON: CT head without contrast from 07/16/2017. TECHNIQUE: Multiplanar, multisequence MR images of the brain were obtained without intravenous contrast enhancement. FINDINGS: HEMORRHAGE: None DWI: No evidence of an acute or early subacute infarction. BRAIN PARENCHYMA: There are few tiny T2/FLAIR hyperintense foci in right frontal subcortical white matter. There is no mass, mass effect or abnormal extra-axial fluid collection. There is no territorial infarction. VENTRICLES: The ventricles are normal in size, shape and configuration. CRANIUM: There is normal bone marrow signal pattern. ORBITS: Grossly unremarkable. PARANASAL SINUSES/MASTOIDS: There is mild mucosal thickening in the frontal sinuses and ethmoid air cells. There is a small retention cyst/polyp in the right maxillary sinus. VASCULAR SYSTEM: There are normal signal voids in the larger intracranial arteries. OTHER FINDINGS: None. IMPRESSION: 1. No acute intracranial abnormality. 2. Minimal right frontal subcortical white matter changes are strictly nonspecific and could represent gliosis, migraine headache effect or early chronic microangiopathic changes amongst others.
[2018-09-02 17:18] VITALS: BP 125/81; PULSE 91; TEMP 98.1
--- NOTE | 2018-09-02 18:22 | CP.PCM.PN ---
Subjective - Date & Time of Evaluation Date of Evaluation: 09/02/18 Time of Evaluation: 18:19 - Subjective Subjective: Patient has no complaint. Vital signs stable. Blood glucose better controlled. Head MRI essentially normal. Will discharge home today, on same home medications. To F/U with her PMD in one week. Objective - Vital Signs/Intake and Output Vital Signs (last 24 hours): Temp Pulse Resp BP Pulse Ox 98.1 F 91 H 20 125/81 98 09/02/18 15:00 09/02/18 15:00 09/02/18 15:00 09/02/18 15:00 09/02/18 15:00 Intake and Output: 09/02/18 09/02/18 06:59 18:59 Intake Total 300 Balance 300 - Medications Medications: Current Medications Acetaminophen (Tylenol 325mg Tab) 650 mg PO Q6 PRN PRN Reason: Headache Last Admin: 09/01/18 17:51 Dose: 650 mg Enoxaparin Sodium (Lovenox) 40 mg SC DAILY [facility] Last Admin: 09/02/18 10:28 Dose: 40 mg Insulin Aspart (Novolog) 0 unit SC [facility]; Protocol Last Admin: 09/02/18 17:05 Dose: Not Given Losartan Potassium (Cozaar) 50 mg PO DAILY [facility] Last Admin: 09/02/18 10:27 Dose: 50 mg Meclizine HCl (Antivert) 25 mg PO TID PRN PRN Reason: Dizziness Last Admin: 09/01/18 17:51 Dose: 25 mg Metoprolol Succinate (Toprol Xl) 100 mg PO DAILY [facility] Last Admin: 09/02/18 10:27 Dose: 100 mg Rosuvastatin Calcium (Crestor) 20 mg PO HS [facility] Last Admin: 09/01/18 21:57 Dose: Not Given Sitagliptin Phosphate (Januvia) 100 mg PO DAILY [facility] Last Admin: 09/02/18 10:27 Dose: 100 mg - Labs Labs: 09/01/18 01:04 09/01/18 01:04 - Constitutional Appears: Well, No Acute Distress - Head Exam Head Exam: NORMAL INSPECTION - Eye Exam Eye Exam: Normal appearance Pupil Exam: NORMAL ACCOMODATION - ENT Exam ENT Exam: Normal Exam - Neck Exam Neck Exam: Normal Inspection - Respiratory Exam Respiratory Exam: Clear to Ausculation Bilateral, NORMAL BREATHING PATTERN - Cardiovascular Exam Cardiovascular Exam: REGULAR RHYTHM - GI/Abdominal Exam GI & Abdominal Exam: Soft, Normal Bowel Sounds - Rectal Exam Rectal Exam: Deferred - Extremities Exam Extremities Exam: Normal Inspection - Back Exam Back Exam: NORMAL INSPECTION - Neurological Exam Neurological Exam: Alert, Awake, Normal Gait, Oriented x3 - Psychiatric Exam Psychiatric exam: Anxious - Skin Skin Exam: Dry, Intact, Normal Color, Warm Assessment and Plan (1) Uncontrolled hypertension Status: Resolved (2) Uncontrolled diabetes mellitus Status: Resolved (3) Headache Status: Resolved
--- NOTE | 2018-09-03 20:57 | CARD ---
APPROVED REPORT Date of service: 09/01/2018 EKG Measurement Heart [id number] <Conclusion> Sinus tachycardia Otherwise normal ECG
== END 2018-09-02 19:33 | disposition home or self-care (01) ==
LOC: C.ER 00:16 → C.9E 02:17 → C.6T 02:56
PROVIDERS: ADMIT Internal Medicine Cardiovascular Disease; ATTEND Internal Medicine Cardiovascular Disease
DX: E11.65 Type 2 diabetes mellitus with hyperglycemia (principal); R42 Dizziness and giddiness; E66.9 Obesity, unspecified; G95.20 Unspecified cord compression; R53.1 Weakness; E78.00 Pure hypercholesterolemia, unspecified; I10 Essential (primary) hypertension; Z79.4 Long term (current) use of insulin; Z85.43 Personal history of malignant neoplasm of ovary
CPT/HCPCS: 36415; 70551; 71045; 80053; 81001; 82948; 83036; 83880; 84484; 85025; 93005; 99285; G0378; J1650; J2060